=== PATIENT | female | born 1955 | race Caucasian/White ===

== ENCOUNTER 2016-10-11 08:48 | Outpatient (CLI) | payer OTHER ==
[~2016-10-11] VITALS: Ht 154.9 cm; Wt 88.0 kg
[~2016-10-11 08:48] MED LIST: ALLE25CA OR; BLAC20TA PO; BLACK COHOSH; CALC500T49; CALCCHW12; FERR324T5; FISH100035 PO; HAIRTAB5 PO; IRON28TA; MULTIVIT; OMEP40CA PO; PROT20TA11; REMICADE IV; VITA2000 PO; [UNRECOGNIZED DRUG - OTHER]; diphenhydrAMINE 25 MG CAP PO SCH
[2016-10-11] MEDS ORDERED: inFLIXimab INJECTION 400 MG in NS 210 ML IV ONE (09:00)
[2016-10-11] MEDS ORDERED: NS 1,000 ML IV SCH (09:00)
== END 2016-10-11 11:50 | disposition home or self-care (01) ==
LOC: M INFU 08:48
PROVIDERS: ATTEND Internal Medicine Gastroenterology
DX: K50.019 Crohn's disease of small intestine with unspecified complications (principal); Z91.040 Latex allergy status; Z79.899 Other long term (current) drug therapy; M19.90 Unspecified osteoarthritis, unspecified site
CPT/HCPCS: 96413; 96415; J1745

== ENCOUNTER 2016-12-06 09:43 | Outpatient (CLI) | payer OTHER ==
[~2016-12-06] VITALS: Ht 154.9 cm; Wt 65.0 kg
[2016-12-06] MEDS ORDERED: inFLIXimab INJECTION 400 MG in NS 210 ML IV ONE (11:00)
[2016-12-06] MEDS ORDERED: NS 1,000 ML IV SCH (11:00)
== END 2016-12-06 12:45 | disposition home or self-care (01) ==
LOC: M INFU 09:43
PROVIDERS: ATTEND Internal Medicine Gastroenterology
DX: K50.00 Crohn's disease of small intestine without complications (principal); Z91.040 Latex allergy status; Z88.0 Allergy status to penicillin; Z79.899 Other long term (current) drug therapy
CPT/HCPCS: 96413; 96415; J1745

== ENCOUNTER 2017-01-31 11:10 | Outpatient (CLI) | payer OTHER ==
[~2017-01-31] VITALS: Ht 154.9 cm; Wt 66.0 kg
[2017-01-31] MEDS ORDERED: NS 1,000 ML IV SCH (11:30)
[2017-01-31] MEDS ORDERED: inFLIXimab INJECTION 400 MG in NS 210 ML IV ONE (12:00)
== END 2017-01-31 14:20 | disposition home or self-care (01) ==
LOC: M INFU 11:10
PROVIDERS: ATTEND Internal Medicine Gastroenterology
DX: K50.00 Crohn's disease of small intestine without complications (principal); Z88.0 Allergy status to penicillin; Z91.040 Latex allergy status
CPT/HCPCS: 96413; 96415; J1745

== ENCOUNTER 2017-03-28 08:19 | Outpatient (CLI) | payer OTHER ==
[~2017-03-28] VITALS: Ht 154.9 cm; Wt 88.0 kg
[2017-03-28] MEDS ORDERED: inFLIXimab INJECTION 400 MG in NS 210 ML IV ONE (09:00)
[2017-03-28] MEDS ORDERED: NS 1,000 ML IV SCH (09:00)
== END 2017-03-28 11:40 | disposition home or self-care (01) ==
LOC: M INFU 08:19
PROVIDERS: ATTEND Internal Medicine Gastroenterology
DX: K50.00 Crohn's disease of small intestine without complications (principal)

== ENCOUNTER 2017-05-23 07:50 | Outpatient (CLI) | payer OTHER ==
[~2017-05-23] VITALS: Ht 154.9 cm; Wt 66.0 kg
[~2017-05-23 07:50] MED LIST changes: -FISH100035 PO; +FISH7.5C PO
[2017-05-23] MEDS ORDERED: NS 1,000 ML IV SCH (08:00)
[2017-05-23] MEDS ORDERED: inFLIXimab INJECTION 400 MG in NS 210 ML IV ONE (08:00)
== END 2017-05-23 10:55 | disposition home or self-care (01) ==
LOC: M INFU 07:50
PROVIDERS: ATTEND Internal Medicine Gastroenterology
DX: K50.00 Crohn's disease of small intestine without complications (principal)
CPT/HCPCS: 96413; 96415; J1745

== ENCOUNTER → 2017-06-23 | Outpatient (CLI) | payer OTHER ==
[~2017-06-23] MED LIST changes: -diphenhydrAMINE 25 MG CAP PO SCH
== END ==
LOC: M LAB 16:10
PROVIDERS: ATTEND Internal Medicine Gastroenterology
DX: K50.00 Crohn's disease of small intestine without complications (principal)

== ENCOUNTER → 2017-07-07 | Outpatient (CLI) | payer OTHER ==
--- NOTE | 2017-07-07 16:29 | REPMRS ---
Patient History The patient states she had a clinical breast exam in 07/2017. Patient is postmenopausal. No known family history of cancer. Digital Woman Screen Mammo: July 07, 2017 - Exam #: [id number] Bilateral CC and MLO view(s) were taken. Technologist: Zahira Alexandar, Technologist Prior study comparison: January 21, 2010, bilateral bilat screen digital mammo performed at [facility]. FINDINGS: There are scattered fibroglandular densities. The patient states that there are no palpable abnormalities or other breast complaints. There has been no change in the appearance of the mammogram from the prior studies. There is moderately dense fibroglandular tissue which is fairly symmetric. There is no interval development of dominant mass, areas of architectural distortion, or clustered microcalcification typical of malignancy. No significant changes when compared with prior studies. ASSESSMENT: BI-RADS/ACR category 1 mammogram. Negative. Recommendation Routine screening mammogram in 1 year (for women over age 40). This mammogram was interpreted with the aid of an FDA-approved computer-aided dectection system. A. Negative x-ray reports should not delay biopsy if a dominant or clinically suspicious mass is present. B. Not all cancers are identified by mammography. C. Adenosis and dense breast may obscure an underlying neoplasm. Electronically Signed By: Travon Orourke M.D. 07/07/17 [id number]
== END ==
LOC: M WHC 15:14
PROVIDERS: ATTEND Nurse Practitioner Women's Health
DX: Z12.31 Encounter for screening mammogram for malignant neoplasm of breast (principal)

== ENCOUNTER 2017-07-18 07:49 | Outpatient (CLI) | payer OTHER ==
[~2017-07-18] VITALS: Ht 154.9 cm; Wt 66.0 kg
[2017-07-18] MEDS ORDERED: INFLIXIMAB BIOSIMILAR 400 MG in NS 210 ML IV ONE (08:00)
[2017-07-18] MEDS ORDERED: diphenhydrAMINE 25 MG CAP PO ONE (08:00)
[2017-07-18] MEDS ORDERED: ACETAMINOPHEN TAB 650MG DOSE (2X325MG) PO ONE (08:00)
[2017-07-18] MEDS ORDERED: NS 1,000 ML IV SCH (08:00)
== END 2017-07-18 10:45 | disposition home or self-care (01) ==
LOC: M INFU 07:49
PROVIDERS: ATTEND Internal Medicine Gastroenterology
DX: K50.90 Crohn's disease, unspecified, without complications (principal); Z91.040 Latex allergy status; Z88.8 Allergy status to other drugs, medicaments and biological substances; Z91.041 Radiographic dye allergy status; Z88.0 Allergy status to penicillin; Z79.899 Other long term (current) drug therapy
CPT/HCPCS: 96413; 96415; Q5102

== ENCOUNTER 2017-07-20 06:38 | Day surgery (SDC) | payer OTHER ==
[~2017-07-20] VITALS: Ht 152.4 cm; Wt 63.0 kg
[2017-07-20] MEDS ORDERED: PROPOFOL 200 MG/20 ML VIAL As Ordered ONE (06:56)
[2017-07-20] MEDS ORDERED: LIDOCAINE 2% INJ 100 MG/5 ML SDV (FOR ANES.) As Ordered ONE (06:56)
[2017-07-20] MEDS ORDERED: NS 1,000 ML IV ONE (07:30)
--- NOTE | 2017-07-20 08:04 | ROOR ---
Patient Name: Nilesh Oleary Procedure Date: 07/20/2017 7:40 AM Date of : 1955 Age: 62 Room: [facility] Gender: Female Note Status: Finalized Procedure: Total Colonoscopy to Anastomosis + Biopsies Indications: Lower abdominal pain, Follow-up of Crohn's disease of the small bowel and colon, Disease activity assessment of Crohn's disease of the small bowel and colon Providers: James Yanes MD Referring MD: SCOTT BUENROSTRO MD Requesting Provider: Medicines: Monitored Anesthesia Care Complications: No immediate complications. Procedure: Pre-Anesthesia Assessment: - The heart rate, respiratory rate, oxygen saturations, blood pressure, adequacy of pulmonary ventilation, and response to care were monitored throughout the procedure. The Colonoscope was introduced through the anus and advanced to the ileocolonic anastomosis. The colonoscopy was performed without difficulty. The patient tolerated the procedure well. The quality of the bowel preparation was excellent. Findings: The perianal and digital rectal examinations were normal. Non-bleeding internal hemorrhoids were found during retroflexion. The hemorrhoids were small and Grade I (internal hemorrhoids that do not prolapse). There was evidence of a prior end-to-end ileo-colonic anastomosis at the hepatic flexure. This was patent and was characterized by inflammation and ulceration. The anastomosis could not be traversed. The exam was otherwise without abnormality on direct and retroflexion views. Impression: - Non-bleeding internal hemorrhoids. - Patent end-to-end ileo-colonic anastomosis, characterized by inflammation and ulceration. Biopsied. - The examination was otherwise normal on direct and retroflexion views. - No specimens collected. Recommendation: - Patient has a contact number available for emergencies. The signs and symptoms of potential delayed complications were discussed with the patient. Return to normal activities tomorrow. Written discharge instructions were provided to the patient. - Resume previous diet. - Discharge patient to home. - Continue present medications. - Await pathology results. - Telephone GI clinic for pathology results in 1 week. - Return to referring physician. - The findings and recommendations were discussed with the patient's family. James Yanes MD James Yanes MD 07/20/2017 8:04:02 AM This report has been signed electronically. Number of Addenda: 0 Note Initiated On: 07/20/2017 7:40 AM Estimated Blood Loss: Estimated blood loss: none.
[2017-07-20 08:25] VITALS: BP 117/77
== END 2017-07-20 08:29 | disposition home or self-care (01) ==
LOC: M OPP 06:38 → EDSTATUS 07:30 → M OPP 08:29
PROVIDERS: ATTEND Internal Medicine Gastroenterology
DX: K50.80 Crohn's disease of both small and large intestine without complications (principal); R10.30 Lower abdominal pain, unspecified; K64.0 First degree hemorrhoids; Z98.0 Intestinal bypass and anastomosis status; K63.89 Other specified diseases of intestine; R19.7 Diarrhea, unspecified; R53.83 Other fatigue; D64.9 Anemia, unspecified; R63.0 Anorexia; J84.89 Other specified interstitial pulmonary diseases; M19.90 Unspecified osteoarthritis, unspecified site; R06.02 Shortness of breath; Z87.442 Personal history of urinary calculi; Z88.8 Allergy status to other drugs, medicaments and biological substances; Z88.0 Allergy status to penicillin; Z91.041 Radiographic dye allergy status; Z91.040 Latex allergy status; Z79.899 Other long term (current) drug therapy

== ENCOUNTER 2017-08-24 15:24 | Inpatient (IN) | payer OTHER ==
[~2017-08-24] VITALS: Ht 154.9 cm; Wt 63.3 kg
[~2017-08-24 15:24] MED LIST changes: -ALLE25CA OR; +ALLE25CA PO; -CALC500T49; +CALC500T49 PO
[2017-08-24] MEDS ORDERED: ONDANSETRON 4MG/2ML VIAL (J2405) IV ONE (17:45)
[2017-08-24] MEDS ORDERED: NS 1,000 ML IV ONE ×2 (17:45→21:30)
[2017-08-24] MEDS ORDERED: READI-CAT 2 PO ONE ×2 (18:00→19:00)
--- NOTE | 2017-08-24 18:18 | REP ---
Clinical: Lower chest and abdominal pain. Technique: PA and lateral. Comparison: 05/22/2014. Findings: Mediastinum and cardiac silhouette are stable. Lung ayala demonstrate mild chronic interstitial changes. Trace left basilar atelectasis cannot be excluded. Ovoid mass density in the right lower lung zone is similar to prior examination and should be correlated with history. Impression: 1. Trace left basilar atelectasis. 2. Ovoid mass in the right lower lung zone remains relatively stable compared to 2013. Historical correlation recommended. Signed by Neto Lin MD 08/24/2017 06:09 P
[2017-08-24] MEDS: MORPHINE 2 MG/ML 1ML SYRINGE IV PRN ×2 (18:29→21:27)
[2017-08-24 18:48] LABS: BASO % 0.3 % (0.0-1.0); EOS % 0.1 % (0.0-3.0); IMMATURE GRANULOCYTE % 0.3 % (0-0); LYMPH # 1.3 10^3/uL (1.5-4.5); LYMPH % 11.4 % (24.0-44.0); MEAN CORPUSCULAR HEMOGLOBIN 27.3 pg (27.0-33.0); MEAN CORPUSCULAR HGB CONC 33.1 g/dl (32.0-36.5); MEAN CORPUSCULAR VOLUME 82.5 fl (80.0-96.0); MONO # 0.3 10^3/uL (0.0-0.8); MONO % 2.9 % (0.0-5.0); PLATELET COUNT, AUTOMATED 263 10^3/uL (150-450); RED CELL DISTRIBUTION WIDTH 14.5 % (11.5-14.5); WHITE BLOOD COUNT 11.7 10^3/uL (4.0-10.0)
[2017-08-24 19:02] LABS: ALBUMIN 3.7 GM/DL (3.2-5.2); ALBUMIN/GLOBULIN RATIO 0.97 (1.00-1.93); ALKALINE PHOSPHATASE 91 U/L (45-117); ALT/SGPT 23 U/L (12-78); ANION GAP 9 MEQ/L (8-16); AST/SGOT 18 U/L (7-37); BILIRUBIN,DIRECT 0.3 MG/DL (0.0-0.2); BILIRUBIN,TOTAL 1.4 MG/DL (0.2-1.0); BLOOD UREA NITROGEN 14 MG/DL (7-18); CALCIUM LEVEL 9.5 MG/DL (8.8-10.2); CARBON DIOXIDE LEVEL 25 MEQ/L (21-32); CHLORIDE LEVEL 106 MEQ/L (98-107); CREATININE FOR GFR 0.59 MG/DL (0.55-1.02); GLOMERULAR FILTRATION RATE > 60.0 (>45); GLUCOSE, FASTING 118 MG/DL (80-110); POTASSIUM SERUM 3.6 MEQ/L (3.5-5.1); SODIUM LEVEL 140 MEQ/L (136-145); TOTAL PROTEIN 7.5 GM/DL (6.4-8.2)
--- NOTE | 2017-08-24 20:57 | REP ---
Clinical: Acute abdominal pain and constipation. Comparison: 06/18/2017. Technique: Axial images from the lung bases to the pubic symphysis using oral contrast material as per protocol with coronal and sagittal re-formations. Comparison: 06/18/2017. Findings: Partial small bowel obstruction is suggested with small-bowel fecal sign extending to the right lower quadrant where transition to collapsed bowel is identified possibly related to adhesions. The distal small bowel and 11 appears relatively normal caliber. There is no evidence for pelvic fluid or ascites, drainable abscess, or free air to suggest perforation. Evidence for prior anastomoses in the right lower quadrant without obstruction. Liver, spleen, pancreas, gallbladder, bilateral adrenal glands and kidneys are stable. Bilateral parapelvic cysts are again identified along with 7 cm exophytic left renal cyst. Pelvis demonstrates normal bladder and evidence for prior hysterectomy. No adenopathy. Abdominal aorta without aneurysm. Musculoskeletal structures demonstrate age-related changes without focal osseous abnormality. Lung bases demonstrate stable right middle lobe mass. Impression: 1. Partial small bowel obstruction with transition suspected in the right lower quadrant. Findings are similar to prior examination. No evidence for perforation, free fluid or drainable collection/abscess. 2. Stable right middle lobe lung mass. 3. Stable bilateral parapelvic and 7 cm left renal cysts. Signed by Neto Lin MD 08/24/2017 08:48 P
[2017-08-24] MEDS ORDERED: CIPROFLOXACIN 400 MG in APPROPRIATE DILUENT 1 EA IV ONE (22:00)
[2017-08-24] MEDS ORDERED: metroNIDAZOLE 500 MG in APPROPRIATE DILUENT 1 EA IV ONE (22:00)
[2017-08-24] MEDS ORDERED: VITMTA PO (23:18)
[2017-08-24] MEDS ORDERED: INFL10VL IV (23:27)
[2017-08-24] MEDS ORDERED: OMEP20CA3 PO (23:30)
[2017-08-25] MEDS: NS 1,000 ML IV SCH ×3 (00:36→20:24)
[2017-08-25 01:00] VITALS: BP 174/86
[2017-08-25] MEDS ORDERED: MORPHINE 2 MG/ML 1ML SYRINGE IV PRN (01:00)
[2017-08-25 06:00] VITALS: BP 140/82
[2017-08-25] MEDS ORDERED: metroNIDAZOLE 500 MG in APPROPRIATE DILUENT 1 EA IV SCH (06:00)
--- NOTE | 2017-08-25 07:07 | HPE ---
DATE OF ADMISSION: 08/24/2017 The patient, Nilesh Ogden, is a 62-year-old female. Patient comes in with 2 days of abdominal pain. Patient noticed that she has had increasing belly tightness and abdominal pain over the past couple of days. She says that initially she did not have nausea and vomiting, however, when she came to the emergency department (ED) she had developed nausea and vomiting. Patient has a history of Crohn's disease on autoimmune treatment and having bowel resection. So patient had suspicion that it was related to her Crohn's. Patient, while here, began antibiotic treatments in the ED and abdominal CT showed small bowel obstruction (SBO). Gastroenterology recommended admission for evaluation by GI tomorrow. Also recommended the continuation of intravenous (IV) antibiotics given the possibility of a Crohn's disease factor in the development of the SBO versus possible adhesions. REVIEW OF SYSTEMS: Patient without any other complaints other than what was mentioned in the history of present illness (HPI). No urinary complaints. Patient's home medications include: - black cohosh -calcium - Benadryl - fish oil - infliximab - multivitamins - omeprazole Patient with ALLERGIES to ASPIRIN, CONTRAST MEDIA, LATEX and PREDNISONE. Patient's other past medical history includes gastroesophageal reflux disease (GERD), colonic resection as noted above, hysterectomy, adhesions. Patient denies any related family history. Patient is a nonsmoker, does not use drugs, does not drink alcohol. PHYSICAL EXAMINATION: Patient was resting comfortably. When I came though, she was somewhat annoyed by the presence of the tube. Vitally stable. Temperature 96.7, pulse 77, respiratory rate 18, blood pressure (BP) 141/90, pulse oximetry is 97% on room air. Patient is alert and oriented times three with normal affect, normal mood. Cranial nerve (CN) II-XII grossly intact. Patient with good strength in arms and legs. No significantly impaired range of movement. S1, S2, regular rate and rhythm (RRR). No murmur, rub or gallop (MRG). Good inspiratory and expiratory effort. No wheezes, rhonchi or rales. Abdomen is obese, somewhat tense. Skin is warm and dry. No apparent lymphadenopathy. Patient also with nasogastric (NG) tube obviously placed. Neck is supple. No rigidity. Extraocular muscles intact (EOMI). Pupils equal, round, and reactive to light and accommodation (PERRLA). Patient with grossly normal hearing, able to see in all four quadrants. LABORATORY EXAMINATIONS: WBC mildly elevated at 11.7. Otherwise, hemoglobin and hematocrit within normal limits. Chemistry grossly normal. Urinalysis is equivocal. Positive leukocyte esterases with 11 WBCs and 4 urine RBCs, also positive ketones, however negative nitrite. Patient is asymptomatic. For chest x-ray the impression is trace left basilar atelectasis, ovoid mass in the right lower lung zone remains relatively stable compared to 2014. Historical correlation is recommended. CT abdomen shows partial small bowel obstruction transition suspected in the right lower quadrant. Findings are similar to prior examination. No evidence for perforation, free fluid or drainable collection abscess. Right middle lobe lung mass. Stable bilateral parapelvic 7 mm left renal cyst. ASSESSMENT AND PLAN: Patient is a pleasant, 62-year-old female who comes in with chief complaint of abdominal pain, nausea and vomiting, found to have small bowel obstruction on CT. Patient's GI specialist recommends admission, NG tube, IV antibiotics, evaluation in the morning. We will follow recommendations. Patient to be nothing by mouth except medications. Deep venous thrombosis (DVT) prophylaxis, intermittent pneumatic compression (IPC). Patient ALLERGIC to ASPIRIN. Patient is ambulatory. Possible intervention, therefore, anticoagulation not to be done right now. Continue proton pump inhibitor (PPI) for patient's gastroesophageal reflux disease and patient's Crohn's disease. Patient gets outpatient immune immunomodulatory therapy. Pain control with morphine. Continue IV antibiotics as possible infectious source. Abnormal urinalysis. Patient nonsymptomatic. Patient already on Cipro, Flagyl, which would give moderate coverage to any urinary tract infection (UTI) anyway. Would not start antibiotics solely on the basis of the urinalysis. I first saw patient 08/24/2017. Given the patient's need for a NG tube, IV antibiotics, I doubt the patient will be here for less than two midnights.
[2017-08-25 07:29] LABS: BASO % 0.1 % (0.0-1.0); EOS % 0.4 % (0.0-3.0); IMMATURE GRANULOCYTE % 0.2 % (0-0); LYMPH # 1.9 10^3/uL (1.5-4.5); LYMPH % 20.7 % (24.0-44.0); MEAN CORPUSCULAR HEMOGLOBIN 27.4 pg (27.0-33.0); MEAN CORPUSCULAR HGB CONC 32.7 g/dl (32.0-36.5); MEAN CORPUSCULAR VOLUME 83.8 fl (80.0-96.0); MONO # 0.6 10^3/uL (0.0-0.8); MONO % 6.4 % (0.0-5.0); NEUTROPHILS # 6.6 10^3/uL (1.8-7.7); NEUTROPHILS % 72.2 % (36.0-66.0); PLATELET COUNT, AUTOMATED 243 10^3/uL (150-450); RED CELL DISTRIBUTION WIDTH 14.7 % (11.5-14.5); WHITE BLOOD COUNT 9.2 10^3/uL (4.0-10.0)
--- NOTE | 2017-08-25 08:53 | IPNPDOC ---
Subjective Date Seen The patient was seen on 08/25/17. Subjective Chief Complaint/HPI The patient is a 62-year-old female admitted with a reason for visit of Small Bowel Obstruction. Events since last encounter still has some abdominal pain but a little better than yesterday . Has not passed any gas yet and no bowel movements. Has NG tube to suction , Says the tube is bothering her. No chest pain or sob , has some nasal congestion and cold going on for about 2 days . no fever or chills, no nausea or vomiting. Says her belly is much flatter today compared to yesterday. Objective Physical Examination General Exam: Positive: Alert, Cooperative, No Acute Distress Eye Exam: Positive: PERRLA, Conjunctiva & lids normal, EOMI, Negative: Sclera icteric ENT Exam: Positive: Atraumatic, Mucous membr. moist/pink, Pharynx Normal Neck Exam: Positive: Supple, Negative: JVD, thyromegaly Chest Exam: Positive: Clear to auscultation, Normal air movement Heart Exam: Positive: Rate Normal, Regular Rhythm, Normal S1, Normal S2, Negative: Murmurs, Rubs Abdomen Exam: Positive: BS Hypoactive, Soft, Tenderness Extremity Exam: Positive: Normal pulses, Negative: Clubbing, Cyanosis, Edema Assessment /Plan Problems (1) SBO (small bowel obstruction) Status: Acute Problem Text: will continue NPO , NG tube to suction, IVF will ask surgery for evaluation. on empiric antibiotics (2) Crohn's disease Status: Chronic Problem Text: On Remicade. (3) GERD (gastroesophageal reflux disease) Status: Chronic (4) Lung mass Status: Chronic Problem Text: Right middle lobe mass stable since 2014. (5) Renal cyst Status: Chronic Plan/VTE VTE Prophylaxis Ordered?: Yes VS, I&O, 24H, Fishbone Vital Signs/I&O Vital Signs Date Time Temp Pulse Resp B/P (MAP) Pulse Ox O2 Delivery O2 Flow Rate FiO2 08/25/17 06:00 98.5 95 18 140/82 (101) 97 Room Air Laboratory Data 24H LABS Laboratory Tests 2 08/24/17 18:08: Immature Granulocyte % (Auto) 0.3H, White Blood Count 11.7H, Red Blood Count 5.27, Hemoglobin 14.4, Hematocrit 43.5, Mean Corpuscular Volume 82.5, Mean Corpuscular Hemoglobin 27.3, Mean Corpuscular Hemoglobin Concent 33.1, Red Cell Distribution Width 14.5, Platelet Count 263, Neutrophils (%) (Auto) 85.0H, Lymphocytes (%) (Auto) 11.4L, Monocytes (%) (Auto) 2.9, Eosinophils (%) (Auto) 0.1, Basophils (%) (Auto) 0.3, Neutrophils # (Auto) 10.0H, Lymphocytes # (Auto) 1.3L, Monocytes # (Auto) 0.3, Eosinophils # (Auto) 0.0, Basophils # (Auto) 0.0, Immature Granulocyte # (Auto) 0.0, Nucleated Red Blood Cells % (auto) 0.0, Anion Gap 9, Glomerular Filtration Rate > 60.0, Lactic Acid Level 1.5, Calcium Level 9.5, Aspartate Amino Transf (AST/SGOT) 18, Alanine Aminotransferase (ALT/ SGPT) 23, Alkaline Phosphatase 91, Total Bilirubin 1.4H, Direct Bilirubin 0.3H, Total Protein 7.5, Albumin 3.7, Albumin/Globulin Ratio 0.97L, Lipase 89 08/24/17 19:29: Urine Appearance HAZY, Urine Color YELLOW, Urine pH 5.0, Urine Specific [place] 1.019, Urine Protein NEGATIVE, Urine Glucose (UA) NEGATIVE, Urine Ketones 1+H, Urine Urobilinogen 0.2, Urine Bilirubin NEGATIVE, Urine Leukocyte Esterase 2+H, Urine Blood NEGATIVE, Urine Nitrite NEGATIVE, Urine WBC (Auto) 11H, Urine RBC ( Auto) 4H, Urine Hyaline Casts (Auto) 0, Urine Bacteria (Auto) NEGATIVE, Urine Squamous Epithelial Cells 0, Urine Mucus (Auto) SMALL, Urine Sperm (Auto) 08/25/17 07:00: Immature Granulocyte % (Auto) 0.2H, White Blood Count 9.2, Red Blood Count 4.75 , Hemoglobin 13.0, Hematocrit 39.8, Mean Corpuscular Volume 83.8, Mean Corpuscular Hemoglobin 27.4, Mean Corpuscular Hemoglobin Concent 32.7, Red Cell Distribution Width 14.7H, Platelet Count 243, Neutrophils (%) (Auto) 72.2H, Lymphocytes (%) (Auto) 20.7L, Monocytes (%) (Auto) 6.4H, Eosinophils (%) (Auto) 0.4, Basophils (%) (Auto) 0.1, Neutrophils # (Auto) 6.6, Lymphocytes # (Auto) 1.9, Monocytes # (Auto) 0.6, Eosinophils # (Auto) 0.0, Basophils # (Auto) 0.0, Immature Granulocyte # (Auto) 0.0, Nucleated Red Blood Cells % (auto) 0.0 CBC/BMP Laboratory Tests 08/24/17 18:08 Red Blood Count 5.27, Mean Corpuscular Volume 82.5, Mean Corpuscular Hemoglobin 27.3, Mean Corpuscular Hemoglobin Concent 33.1, Red Cell Distribution Width 14.5 , Neutrophils (%) (Auto) 85.0 H, Lymphocytes (%) (Auto) 11.4 L, Monocytes (%) ( Auto) 2.9, Eosinophils (%) (Auto) 0.1, Basophils (%) (Auto) 0.3, Neutrophils # ( Auto) 10.0 H, Lymphocytes # (Auto) 1.3 L, Monocytes # (Auto) 0.3, Eosinophils # (Auto) 0.0, Basophils # (Auto) 0.0 08/25/17 07:00 Red Blood Count 4.75, Mean Corpuscular Volume 83.8, Mean Corpuscular Hemoglobin 27.4, Mean Corpuscular Hemoglobin Concent 32.7, Red Cell Distribution Width 14.7 H, Neutrophils (%) (Auto) 72.2 H, Lymphocytes (%) (Auto) 20.7 L, Monocytes (%) (Auto) 6.4 H, Eosinophils (%) (Auto) 0.4, Basophils (%) (Auto) 0.1, Neutrophils # (Auto) 6.6, Lymphocytes # (Auto) 1.9, Monocytes # (Auto) 0.6, Eosinophils # (Auto) 0.0, Basophils # (Auto) 0.0 KATHERINE DE MD Aug 25, 2017 08:53
[2017-08-25] MEDS ORDERED: PANTOPRAZOLE 40MG TAB (PROTONIX) PO SCH (09:00)
[2017-08-25] MEDS ORDERED: MULTIVITAMINS/MINERALS THERAP 1 TAB PO SCH (09:00)
[2017-08-25] MEDS: CIPROFLOXACIN 400 MG in APPROPRIATE DILUENT 1 EA IV SCH ×2 (09:16→20:23)
--- NOTE | 2017-08-25 09:56 | CR.PDOC ---
General Surgery Consultation Date of Consultation 08/25/17 History and Physical CONSULT REPORT FOR: Caitlin Medina MD REASON FOR CONSULTATION: Crohn's Disease Exacerbation, partial small bowel obstruction HISTORY OF PRESENT ILLNESS: Patient admitted overnight for a 2 day history of crampy abdominal pain centered over the right lower quadrant area associated with nausea. She has a long standing history of Crohn's Disease and is followed up by Dr. Yanes on Remicaide therapy. Last Colonoscopy was this July, showing still active Crohn's disease at the ileo-colonic anastomosis. PAST MEDICAL HISTORY: 1. Crohn's disease 2. PAST SURGICAL HISTORY: INCLUDES: TOTAL HYSTERECTOMY/BSO TONSILLECTOMY APPENDECTOMY RIGHT CARPAL TUNNEL RELEASE HERNIA REPAIR SMALL INTESTINE SURGERY FOR 5 BLOCKAGES AND POSTOP INFECTION AT INCISION, OPEN AND DRAINED D&C COLONOSCOPY .FAMILY HISTORY FATHER: 74 YRS, COMPLICATIONS OF DM MOTHER: 72 YRS, COMPLICATIONS OF ALZHEIMERS SIBLINGS: ALIVE, HALF SISTER, NO KNOWN MEDICAL PROBLEMS DAUGHTER(S): ALIVE 42,38 YRS, OLDEST-HAS NO CONTACT WITH; YOUNGEST-DEPRESSION IN PAST 1 SISTER(S) - HEALTHY. 2DAUGHTER(S) . DENIES BREAST, COLON OR OVARIAN CANCERS. TWO GRANDSONS, DOES NOT SEE (OLDEST DAUGHTER). SOCIAL HISTORY GENERAL: TOBACCO USE ARE YOU A:NONSMOKER RECREATIONAL DRUG USE DENIES. ALCOHOL SCREENING POINTS0 INTERPRETATIONNEGATIVE CAFFEINE NONE. PREVIOUS ANESTHESIA REACTIONS: ALLERGIES: Please see below. FAMILY HISTORY: . HOME MEDICATIONS: Please see below. REVIEW OF SYSTEMS: GENERAL: [Denies chills, reports weight gain, reports feeling febrile yesterday] . HEENT: [Denies blurred vision and double vision. Denies ear symptoms. Denies hoarseness]. NECK: Denies any neck pain]. CARDIOVASCULAR: [Denies chest pain and palpitations]. MUSCULOSKELETAL: [Denies arthralgias, back pain and thrombophlebitis]. SKIN: [Denies rash]. NEUROLOGIC: [Denies headache, stroke and transient ischemic attack]. PSYCHIATRIC: [Denies anxiety and depression]. ENDOCRINE: [Denies thyroid disease]. HEMATOLOGY/ONCOLOGY: [Denies bleeding or clotting disorder]. HEART: [Denies any chest pains, palpitations, paroxysmal dyspnea, orthopnea]. PULMONARY: [Denies chronic cough, dyspnea and wheezing]. GASTROINTESTINAL: [Denies rectal bleeding, family history of colon cancer, constipation, diarrhea, dysphagia, heartburn and jaundice]. GENITOURINARY: [Denies dysuria, frequency, hematuria and nocturia]. ENDOCRINE: [Denies polydipsia, polyphagia, polyuria, heat or cold intolerance]. INFECTIOUS: [Denies any recent upper respiratory tract infection, UTI, need for use of antibiotics]. NUTRITION: [Reports good appetite]. PHYSICAL EXAMINATION: VITALS SIGNS: Please see below. GENERAL APPEARANCE:[Patient seen, laying in bed, awake, alert, and oriented. Comfortable, in no acute distress]. SKIN: [Warm and moist]. HEENT: [Normocephalic, atraumatic. [place] palpebral conjunctiva, anicteric sclerae. Lips and mucosa appear moist]. NECK: [Supple, no thyromegaly. No obvious jugular venous distention]. LUNGS: [Clear to auscultation bilaterally. No wheezing appreciated]. HEART: [No chest wall abnormalities. Regular rate and rhythm with no murmurs appreciated]. ABDOMEN: Abdomen is , soft, . [No hepatosplenomegaly. No umbilical or groin herniations, nondistended. No noticeable rebound or guarding. No grimacing with palpation. No rebound tenderness. No masses appreciated]. EXTREMITIES: [Extremities have no deformities. No edema identified] ANCILLARIES: . LABORATORY DATA: Please see below. IMAGING STUDIES: CT scan of abdomen and pelvis 1. Partial small bowel obstruction with transition suspected in the right lower quadrant. Findings are similar to prior examination. No evidence for perforation, free fluid or drainable collection/abscess. 2. Stable right middle lobe lung mass. 3. Stable bilateral parapelvic and 7 cm left renal cysts. IMPRESSION AND PLAN: Crohn's Disease partial small bowel obstruction probably at the ileocolonic anastomosis - There is evidence of Crohn's disease activity here on the last colonoscopy on 2016 but remains patent at that time. Continue with conservative management. Check CRP levels Once clinically improved, may gradually resume diet. Vital Signs Vital Signs Date Time Temp Pulse Resp B/P (MAP) Pulse Ox O2 Delivery O2 Flow Rate FiO2 08/25/17 06:00 98.5 95 18 140/82 (101) 97 Room Air Laboratory Data Labs 24H Laboratory Tests 2 08/24/17 18:08: Immature Granulocyte % (Auto) 0.3H, White Blood Count 11.7H, Red Blood Count 5.27, Hemoglobin 14.4, Hematocrit 43.5, Mean Corpuscular Volume 82.5, Mean Corpuscular Hemoglobin 27.3, Mean Corpuscular Hemoglobin Concent 33.1, Red Cell Distribution Width 14.5, Platelet Count 263, Neutrophils (%) (Auto) 85.0H, Lymphocytes (%) (Auto) 11.4L, Monocytes (%) (Auto) 2.9, Eosinophils (%) (Auto) 0.1, Basophils (%) (Auto) 0.3, Neutrophils # (Auto) 10.0H, Lymphocytes # (Auto) 1.3L, Monocytes # (Auto) 0.3, Eosinophils # (Auto) 0.0, Basophils # (Auto) 0.0, Immature Granulocyte # (Auto) 0.0, Nucleated Red Blood Cells % (auto) 0.0, Anion Gap 9, Glomerular Filtration Rate > 60.0, Lactic Acid Level 1.5, Calcium Level 9.5, Aspartate Amino Transf (AST/SGOT) 18, Alanine Aminotransferase (ALT/ SGPT) 23, Alkaline Phosphatase 91, Total Bilirubin 1.4H, Direct Bilirubin 0.3H, Total Protein 7.5, Albumin 3.7, Albumin/Globulin Ratio 0.97L, Lipase 89 08/24/17 19:29: Urine Appearance HAZY, Urine Color YELLOW, Urine pH 5.0, Urine Specific [place] 1.019, Urine Protein NEGATIVE, Urine Glucose (UA) NEGATIVE, Urine Ketones 1+H, Urine Urobilinogen 0.2, Urine Bilirubin NEGATIVE, Urine Leukocyte Esterase 2+H, Urine Blood NEGATIVE, Urine Nitrite NEGATIVE, Urine WBC (Auto) 11H, Urine RBC ( Auto) 4H, Urine Hyaline Casts (Auto) 0, Urine Bacteria (Auto) NEGATIVE, Urine Squamous Epithelial Cells 0, Urine Mucus (Auto) SMALL, Urine Sperm (Auto) 08/25/17 07:00: Immature Granulocyte % (Auto) 0.2H, White Blood Count 9.2, Red Blood Count 4.75 , Hemoglobin 13.0, Hematocrit 39.8, Mean Corpuscular Volume 83.8, Mean Corpuscular Hemoglobin 27.4, Mean Corpuscular Hemoglobin Concent 32.7, Red Cell Distribution Width 14.7H, Platelet Count 243, Neutrophils (%) (Auto) 72.2H, Lymphocytes (%) (Auto) 20.7L, Monocytes (%) (Auto) 6.4H, Eosinophils (%) (Auto) 0.4, Basophils (%) (Auto) 0.1, Neutrophils # (Auto) 6.6, Lymphocytes # (Auto) 1.9, Monocytes # (Auto) 0.6, Eosinophils # (Auto) 0.0, Basophils # (Auto) 0.0, Immature Granulocyte # (Auto) 0.0, Nucleated Red Blood Cells % (auto) 0.0 CBC/BMP Laboratory Tests 08/24/17 18:08 Red Blood Count 5.27, Mean Corpuscular Volume 82.5, Mean Corpuscular Hemoglobin 27.3, Mean Corpuscular Hemoglobin Concent 33.1, Red Cell Distribution Width 14.5 , Neutrophils (%) (Auto) 85.0 H, Lymphocytes (%) (Auto) 11.4 L, Monocytes (%) ( Auto) 2.9, Eosinophils (%) (Auto) 0.1, Basophils (%) (Auto) 0.3, Neutrophils # ( Auto) 10.0 H, Lymphocytes # (Auto) 1.3 L, Monocytes # (Auto) 0.3, Eosinophils # (Auto) 0.0, Basophils # (Auto) 0.0 08/25/17 07:00 Red Blood Count 4.75, Mean Corpuscular Volume 83.8, Mean Corpuscular Hemoglobin 27.4, Mean Corpuscular Hemoglobin Concent 32.7, Red Cell Distribution Width 14.7 H, Neutrophils (%) (Auto) 72.2 H, Lymphocytes (%) (Auto) 20.7 L, Monocytes (%) (Auto) 6.4 H, Eosinophils (%) (Auto) 0.4, Basophils (%) (Auto) 0.1, Neutrophils # (Auto) 6.6, Lymphocytes # (Auto) 1.9, Monocytes # (Auto) 0.6, Eosinophils # (Auto) 0.0, Basophils # (Auto) 0.0 Home Medications Scheduled (Black Cohosh) 20 Mg Tab, 20 MG PO DAILY, (Reported) (Fish Oil 1000 mg) 1 Cap Cap, 1,000 MG PO BID, (Reported) Calcium (Calcium) 500 Mg Tab, 500 MG PO DAILY, (Reported) Diphenhydramine Hcl (Benadryl) 25 Mg Cap, 25 MG PO PRN, (Reported) Infliximab Injection (Remicade) 100 Mg/10 Ml Vial, 400 MG IV [id number], (Reported) Multivitamins *[facility] STOCKED* (Thera M Plus *[facility] STOCKED*) 1 Tab Tab, 1 TAB PO DAILY, (Reported) Omeprazole (Omeprazole) 20 Mg Cap, 20 MG PO QAM, (Reported) BEFORE FOOD Allergies Coded Allergies: Latex (Verified Allergy, Intermediate, RASH, 08/24/17) Prednisone (Verified Allergy, Intermediate, RASH, 08/24/17) Aspirin (Verified Adverse Reaction, Intermediate, HIVES, 08/24/17) Contrast Media (Verified Adverse Reaction, Intermediate, UNKNOWN, 08/24/17 ) NINO CLINE MD Aug 25, 2017 09:56
[2017-08-25] MEDS ORDERED: ONDANSETRON 4MG/2ML VIAL (J2405) IV PRN (10:45)
[2017-08-25] MEDS: PANTOPRAZOLE 40MG INJ (PROTONIX) (C9113) IV SCH (12:46)
[2017-08-25 14:00] VITALS: BP 140/78
[2017-08-25] MEDS: metroNIDAZOLE 500 MG in APPROPRIATE DILUENT 1 EA IV SCH ×2 (14:13→22:00)
[2017-08-25 22:00] VITALS: BP 136/90
--- NOTE | 2017-08-26 01:40 | CR.PDOC ---
[facility] Consultation Consultation DATE OF CONSULTATION: Aug 25, 2017 at 15:24 Primary physician/ hospitalist: Dr. Caitlin Medina. Reason for consult: Crohns disease. HPI: 62 year old woman with Crohns ileocolitis ( s/p bowel resection in past with ileocolonic anastomosis) was following with Dr. Yanes who started patient on remicade, and last colonoscopy in July 2017 noted active crohns, presented to ER for complaints of abdominal pain and nausea. Patient had CT abdomen noted with partial small bowel obstruction and GI consulted for the same. Patient reports gastroenteritis like symptoms followed by abdominal pain which progressively got worse. Patient reports not being able to tolerate PO diet and not passing stools fo atleast 2 days prior to ER visit. Patient denies vomiting of food. Pertinent negative GI symptoms: Patient denies vomiting, diarrhea, loss of appetite or unintentional weight loss. No history of hematemesis, melena or hematochezia. Review of Systems: GI: as stated above CVS: No chest pain, No palpitations, No leg swelling. 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 Skin: No rash : No hematuria, No burning sensation of the urine ENT: No ear discharge/ pain, No dysphagia. Eyes: No photophobia. Home medications: reviewed. Antithrombotic agents None Medical h/o: As above. Surgical h/o: None on abdomen. Social h/o: Alcohol Denies , smoking Denies , IVDA/ drugs Denies . Family h/o of GI cancers - None Prior Endoscopies: --- Had prior EGD and Colonoscopy in [facility] by Dr. Yanes. Exam: Vitals: reviewed General: Alert and oriented x 3, not in distress HEENT: NO pallor, no icterus. Normal oropharynx, NO cervical lymph nodes. Chest: symmetric with bilateral clear air entry, CVS: S1, S2 heard, normal, no murmurs . Abdomen: non-distended, no surgical scars, soft, non-tender, no palpable masses , normal bowel sounds heard. Extremities: no pedal edema, pulses palpable. ASPHALT SCREED OPERATOR: no focal motor or sensory deficits. Moves all extremities Skin: no rash. Labs: reviewed. Imaging: reviewed Impression: - Moderate to severe crohns disease - Abnormal CT scan showing possible partial SBO but patient able to pass gas and no vomiting. DDx- Acute viral or bacterial gastroenteritis vs flare of crohns disease. Recommendations: - Patient educated about the test results, possible differential diagnoses and All questions answered. - NPO with NG tube with intermittent suction. - Stool work up if diarrhea. - Give empiric course of antibiotics ciprofloxacin and metronidazole for 5 days. - resume diet after 24 hours if tolerating and advance as tolerated. - In view of recent colonoscopy no indication for urgent endoscopic work up at this time. - Elective CT enterography as out patient after the resolution of the acute episode. - Upon discharge patient to follow up with Primary buffing wheel raker Dr. Yanes. Plan of care discussed with patient and primary team. Patient verbalized understanding and agreed with the plan. Allergies Coded Allergies: Latex (Verified Allergy, Intermediate, RASH, 08/24/17) Prednisone (Verified Allergy, Intermediate, RASH, 08/24/17) Aspirin (Verified Adverse Reaction, Intermediate, HIVES, 08/24/17) Contrast Media (Verified Adverse Reaction, Intermediate, UNKNOWN, 08/24/17 ) Home Medications Scheduled (Black Cohosh) 20 Mg Tab, 20 MG PO DAILY, (Reported) (Fish Oil 1000 mg) 1 Cap Cap, 1,000 MG PO BID, (Reported) Calcium (Calcium) 500 Mg Tab, 500 MG PO DAILY, (Reported) Diphenhydramine Hcl (Benadryl) 25 Mg Cap, 25 MG PO PRN, (Reported) Infliximab Injection (Remicade) 100 Mg/10 Ml Vial, 400 MG IV [id number], (Reported) Multivitamins *[facility] STOCKED* (Thera M Plus *[facility] STOCKED*) 1 Tab Tab, 1 TAB PO DAILY, (Reported) Omeprazole (Omeprazole) 20 Mg Cap, 20 MG PO QAM, (Reported) BEFORE FOOD ANTHONY FELTON MD Aug 26, 2017 01:40
[2017-08-26] MEDS: metroNIDAZOLE 500 MG in APPROPRIATE DILUENT 1 EA IV SCH (05:57)
[2017-08-26 06:00] VITALS: BP 130/84
[2017-08-26] MEDS: NS 1,000 ML IV SCH (06:26)
[2017-08-26 06:31] LABS: BASO % 0.3 % (0.0-1.0); EOS # 0.2 10^3/uL (0.0-0.50); EOS % 2.3 % (0.0-3.0); IMMATURE GRANULOCYTE % 0.3 % (0-0); LYMPH # 2.1 10^3/uL (1.5-4.5); LYMPH % 32.3 % (24.0-44.0); MEAN CORPUSCULAR HEMOGLOBIN 27.3 pg (27.0-33.0); MEAN CORPUSCULAR HGB CONC 32.5 g/dl (32.0-36.5); MONO # 0.5 10^3/uL (0.0-0.8); MONO % 7.3 % (0.0-5.0); NEUTROPHILS # 3.7 10^3/uL (1.8-7.7); NEUTROPHILS % 57.5 % (36.0-66.0); PLATELET COUNT, AUTOMATED 231 10^3/uL (150-450); RED CELL DISTRIBUTION WIDTH 14.6 % (11.5-14.5); WHITE BLOOD COUNT 6.4 10^3/uL (4.0-10.0)
[2017-08-26 07:11] LABS: ALBUMIN 2.8 GM/DL (3.2-5.2); ALBUMIN/GLOBULIN RATIO 0.97 (1.00-1.93); ALKALINE PHOSPHATASE 72 U/L (45-117); ALT/SGPT 13 U/L (12-78); ANION GAP 10 MEQ/L (8-16); AST/SGOT 15 U/L (7-37); BILIRUBIN,TOTAL 1.7 MG/DL (0.2-1.0); BLOOD UREA NITROGEN 8 MG/DL (7-18); CALCIUM LEVEL 8.1 MG/DL (8.8-10.2); CARBON DIOXIDE LEVEL 23 MEQ/L (21-32); CHLORIDE LEVEL 110 MEQ/L (98-107); CREATININE FOR GFR 0.46 MG/DL (0.55-1.02); GLOMERULAR FILTRATION RATE > 60.0 (>45); GLUCOSE, FASTING 91 MG/DL (80-110); POTASSIUM SERUM 3.5 MEQ/L (3.5-5.1); SODIUM LEVEL 143 MEQ/L (136-145); TOTAL PROTEIN 5.7 GM/DL (6.4-8.2)
[2017-08-26] MEDS ORDERED: CIPR-249 PO (09:11)
[2017-08-26] MEDS ORDERED: FLAG500T PO (09:11)
[2017-08-26] MEDS: PANTOPRAZOLE 40MG INJ (PROTONIX) (C9113) IV SCH (09:57)
[2017-08-26] MEDS: CIPROFLOXACIN 400 MG in APPROPRIATE DILUENT 1 EA IV SCH (09:57)
--- NOTE | 2017-08-27 14:29 | DSES ---
DATE OF ADMISSION: 08/24/2017 DATE OF DISCHARGE: 08/26/2017 CLINICAL MOLECULAR GENETICIST: Dr. Yanes PRIMARY CARE PROVIDER: Dr. Demetrio Parker DISCHARGE DIAGNOSES: Partial small bowel obstruction as per CT scan. Gastroenteritis, viral or bacteria possible versus flare of Crohn disease. Moderate to severe Crohn disease with ileocolitis, status post bowel resection in the past with ileocolonic anastomosis. Right middle lobe lung mass, stable since 2014. Bilateral renal cysts. Gastroesophageal reflux disease (GERD). DISCHARGE MEDICATIONS: - ciprofloxacin 500 mg by mouth twice a day - metronidazole 500 mg by mouth every 8 hours - black cohosh 20 mg by mouth daily - calcium 500 mg by mouth daily - Benadryl 25 mg by mouth as needed - fish oil 1000 mg by mouth twice a day - infliximab 400 mg IV every 8 weeks - multivitamins one tablet by mouth daily - omeprazole 20 mg daily HOSPITAL COURSE: This is a 62-year-old female presented to the hospital with a 2-day history of crampy abdominal pain, centered over the right lower quadrant, associated with nausea. Patient was found to have a partial small bowel obstruction as per CT scan. However, patient did say she was still passing gas and stool at home, so there was concern that it could be bacterial or viral gastroenteritis versus a flare of Crohn disease, so the patient was empirically started on ciprofloxacin and Flagyl as per the advice of health center manager. Patient was also seen by Dr. Hernandez from surgery. Patient was initially managed with IV fluids, nasogastric (NG) tube, and nothing by mouth. With that, her abdominal pain and distention and nausea resolved. Patient has been started on liquid diet, which she is tolerating. Patient has been passing gas, and she said that she has also had bowel movements. At present, patient's symptoms have mostly resolved, her vital signs are stable and, functionally, she is at her baseline, so can be discharged home. PHYSICAL EXAM: VITAL SIGNS: Temperature 97.2, pulse 70, respiratory rate 18, blood pressure 130/84, pulse oximetry 94% on room air. GENERAL: Patient awake, alert, oriented times three, sitting up in bed, in no acute distress. HEENT: Normocephalic, atraumatic. Moist mucous membranes. Anicteric eyes. CHEST: Clear to auscultation. CARDIOVASCULAR: S1, S2, regular. No rub, murmur, or gallop. ABDOMEN: Soft. Nontender. Bowel sounds present. EXTREMITIES: No edema. LABORATORY DATA: WBC 6.4, hemoglobin 12.3, platelets 231. Sodium 143, potassium 3.5, chloride 110, bicarbonate 23, BUN 8, creatinine 0.4, glucose 91, calcium 8.1, total bilirubin 1.7. AST/ALT normal. CRP 4.98. Lipase normal. Lactic normal. DISPOSITION: Patient is discharged home in stable condition. DISCHARGE INSTRUCTIONS: Patient advised to take full liquid diet for 2 days and then advance diet to soft diet as tolerated. Patient to follow with Dr. Yanes within a week. Patient to followup with primary care provider in 2 weeks. Activity as tolerated.
== END 2017-08-26 14:32 | disposition home or self-care (01) | DRG 245 ==
LOC: M ED 15:24 → M ED INP 23:51 → M MS5PR 08-25 00:36
PROVIDERS: ADMIT Internal Medicine; ATTEND Internal Medicine Nephrology
DX: K50.912 Crohn's disease, unspecified, with intestinal obstruction (principal); K21.9 Gastro-esophageal reflux disease without esophagitis; K52.9 Noninfective gastroenteritis and colitis, unspecified; Z79.899 Other long term (current) drug therapy; Z91.040 Latex allergy status; Z88.6 Allergy status to analgesic agent; Z91.041 Radiographic dye allergy status; Z88.8 Allergy status to other drugs, medicaments and biological substances; Z90.710 Acquired absence of both cervix and uterus

== ENCOUNTER 2017-09-21 08:28 | Outpatient (CLI) | payer OTHER ==
[~2017-09-21] VITALS: Ht 154.9 cm; Wt 65.0 kg
[~2017-09-21 08:28] MED LIST changes: +CIPR-249 PO; +FLAG500T PO; +INFL10VL IV; +OMEP20CA3 PO; +VITMTA PO
[2017-09-21] MEDS ORDERED: NS 1,000 ML IV SCH (09:00)
[2017-09-21] MEDS ORDERED: ACETAMINOPHEN TAB 650MG DOSE (2X325MG) PO ONE (09:00)
[2017-09-21] MEDS ORDERED: diphenhydrAMINE 25 MG CAP PO ONE (09:00)
[2017-09-21] MEDS ORDERED: INFLIXIMAB BIOSIMILAR 400 MG in NS 210 ML IV ONE (09:00)
== END 2017-09-21 11:30 | disposition home or self-care (01) ==
LOC: M INFU 08:28
PROVIDERS: ATTEND Internal Medicine Gastroenterology
DX: K50.00 Crohn's disease of small intestine without complications (principal); Z79.899 Other long term (current) drug therapy; Z91.040 Latex allergy status; Z91.041 Radiographic dye allergy status
CPT/HCPCS: 96413; 96415; Q5102

== ENCOUNTER 2017-11-07 12:19 | Outpatient (CLI) | payer OTHER ==
[2017-11-07] MEDS: ACETAMINOPHEN TAB 650MG DOSE (2X325MG) PO (12:45)
[2017-11-07] MEDS: diphenhydrAMINE 25 MG CAP PO (12:52)
[2017-11-07] MEDS: NS 1,000 ML IV (13:11)
[2017-11-07] MEDS: INFLIXIMAB BIOSIMILAR 400 MG in NS 210 ML IV (13:11)
== END 2017-11-07 15:25 | disposition home or self-care (01) ==
LOC: M INFU 12:19
DX: K50.00 Crohn's disease of small intestine without complications (principal); Z79.899 Other long term (current) drug therapy; Z91.040 Latex allergy status; Z80.0 Family history of malignant neoplasm of digestive organs
CPT/HCPCS: Q5102

== ENCOUNTER → 2017-12-07 | Outpatient (CLI) | payer OTHER | LOC: M RAD 16:16 | DX: R91.8 Other nonspecific abnormal finding of lung field (principal) | CPT/HCPCS: 71250 ==

== ENCOUNTER 2018-01-02 11:43 | Outpatient (CLI) | payer OTHER ==
[2018-01-02] MEDS: diphenhydrAMINE 25 MG CAP PO (12:11)
[2018-01-02] MEDS: ACETAMINOPHEN TAB 650MG DOSE (2X325MG) PO (12:11)
[2018-01-02] MEDS: NS 1,000 ML IV (12:23)
[2018-01-02] MEDS: INFLIXIMAB BIOSIMILAR 400 MG in NS 210 ML IV (12:24)
== END 2018-01-02 15:15 | disposition home or self-care (01) ==
LOC: M INFU 11:43
DX: K50.90 Crohn's disease, unspecified, without complications (principal); Z91.040 Latex allergy status; Z79.899 Other long term (current) drug therapy
CPT/HCPCS: Q5103

== ENCOUNTER 2018-02-28 10:20 | Outpatient (CLI) | payer OTHER ==
[2018-02-28] MEDS: ACETAMINOPHEN TAB 650MG DOSE (2X325MG) PO (10:40)
[2018-02-28] MEDS: diphenhydrAMINE 25 MG CAP PO (10:43)
[2018-02-28] MEDS: NS 1,000 ML IV (10:43)
[2018-02-28] MEDS: FILTER 1.2 MICRON (ADULT TPN/MANNITOL/REMICADE) XX (10:44)
[2018-02-28] MEDS: INFLIXIMAB BIOSIMILAR 400 MG in NS 210 ML IV (11:09)
== END 2018-02-28 13:25 | disposition home or self-care (01) ==
LOC: M INFU 10:20
DX: K50.00 Crohn's disease of small intestine without complications (principal); Z88.8 Allergy status to other drugs, medicaments and biological substances; Z91.040 Latex allergy status; Z91.041 Radiographic dye allergy status; Z79.899 Other long term (current) drug therapy
CPT/HCPCS: Q5103

== ENCOUNTER → 2018-07-11 | Outpatient (CLI) | payer OTHER | LOC: M WHC 14:50 | DX: Z12.31 Encounter for screening mammogram for malignant neoplasm of breast (principal); M81.0 Age-related osteoporosis without current pathological fracture; Z78.0 Asymptomatic menopausal state; M85.851 Other specified disorders of bone density and structure, right thigh; M85.852 Other specified disorders of bone density and structure, left thigh | CPT/HCPCS: 77067 ==

== ENCOUNTER 2018-08-29 08:21 | Outpatient (CLI) | payer OTHER ==
[2018-08-29] MEDS: ACETAMINOPHEN TAB 650MG DOSE (2X325MG) PO (08:50)
[2018-08-29] MEDS: diphenhydrAMINE 25 MG CAP PO (08:50)
[2018-08-29] MEDS: VEDOLIZUMAB 300 MG in NS 250 ML IV (09:19)
== END 2018-08-29 10:20 | disposition home or self-care (01) ==
LOC: M INFU 08:21
DX: K50.90 Crohn's disease, unspecified, without complications (principal); Z91.040 Latex allergy status; Z91.041 Radiographic dye allergy status
CPT/HCPCS: J3380

== ENCOUNTER 2018-09-27 08:49 | Outpatient (CLI) | payer OTHER ==
[~2018-09-27] VITALS: Ht 157.5 cm; Wt 66.0 kg
[2018-09-27 08:55] VITALS: BP_SYST 105; BP_SYST 125; BP_DIAS 51; BP_DIAS 85
[2018-09-27] MEDS ORDERED: diphenhydrAMINE 25 MG CAP PO ONE (10:00)
[2018-09-27] MEDS ORDERED: VEDOLIZUMAB 300 MG in NS 250 ML IV ONE (10:00)
[2018-09-27] MEDS ORDERED: ACETAMINOPHEN TAB 650MG DOSE (2X325MG) PO ONE (10:00)
[2018-09-27] MEDS ORDERED: ENTY1INJ IV (10:16)
[2018-09-27 10:20] VITALS: BP 123/74
== END 2018-09-27 10:20 | disposition home or self-care (01) ==
LOC: M INFU 08:49
PROVIDERS: ATTEND Internal Medicine Gastroenterology
DX: K50.90 Crohn's disease, unspecified, without complications (principal); Z91.040 Latex allergy status; Z91.041 Radiographic dye allergy status
CPT/HCPCS: 96365; J3380

== ENCOUNTER 2018-10-14 19:35 | Emergency (ER) | payer OTHER ==
[~2018-10-14] VITALS: Ht 154.9 cm; Wt 64.5 kg
[~2018-10-14 19:35] MED LIST changes: +ENTY1INJ IV
[2018-10-14] MEDS ORDERED: OMEP20CA3 PO (19:47)
[2018-10-14] MEDS ORDERED: OMEP10CASR PO (19:47)
[2018-10-14 20:22] LABS: BASO % 0.5 % (0.0-1.0); EOS # 0.3 10^3/uL (0.0-0.50); EOS % 3.3 % (0.0-3.0); HEMATOCRIT 41.7 % (36.0-47.0); HEMOGLOBIN 13.4 g/dl (12.0-15.5); LYMPH # 2.1 10^3/uL (1.5-4.5); LYMPH % 25.8 % (24.0-44.0); MEAN CORPUSCULAR HEMOGLOBIN 26.7 pg (27.0-33.0); MEAN CORPUSCULAR HGB CONC 32.1 g/dl (32.0-36.5); MEAN CORPUSCULAR VOLUME 83.1 fl (80.0-96.0); MONO # 0.6 10^3/uL (0.0-0.8); MONO % 6.9 % (0.0-5.0); NEUTROPHILS # 5.1 10^3/uL (1.8-7.7); NEUTROPHILS % 63.3 % (36.0-66.0); PLATELET COUNT, AUTOMATED 254 10^3/uL (150-450); RED BLOOD COUNT 5.02 10^6/uL (4.00-5.40); WHITE BLOOD COUNT 8.1 10^3/uL (4.0-10.0)
[2018-10-14] MEDS ORDERED: NS 500 ML IV ONE (20:30)
[2018-10-14 20:50] LABS: ALBUMIN 3.4 GM/DL (3.2-5.2); ALT/SGPT 22 U/L (12-78); BILIRUBIN,DIRECT 0.2 MG/DL (0.0-0.2); BILIRUBIN,TOTAL 0.8 MG/DL (0.2-1.0); BLOOD UREA NITROGEN 21 MG/DL (7-18); CALCIUM LEVEL 10.2 MG/DL (8.8-10.2); CARBON DIOXIDE LEVEL 26 MEQ/L (21-32); CHLORIDE LEVEL 103 MEQ/L (98-107); CREATININE FOR GFR 0.88 MG/DL (0.55-1.30); GLOMERULAR FILTRATION RATE > 60.0 (>45); GLUCOSE, FASTING 97 MG/DL (70-100); LIPASE 154 U/L (73-393); POTASSIUM SERUM 4.1 MEQ/L (3.5-5.1); SODIUM LEVEL 140 MEQ/L (136-145); TOTAL PROTEIN 7.2 GM/DL (6.4-8.2)
[2018-10-14 22:05] VITALS: BP 154/79
--- NOTE | 2018-10-15 09:08 | REP ---
Abdominal series: Three views. History: Abdomen pain. Comparison chest x-ray is from August 24, 2017. Findings: An ill-defined mass-like opacity is again seen in the right base, roughly 3.7 cm in greatest diameter. This appears slightly less prominent than on the comparison radiograph. This was visible on chest CT most recently December 07, 2017. It is a spiculated mass density in the right middle lobe. Lung ayala are otherwise clear. The pleural angles are sharp. Heart size is normal. Mediastinal contours and hilar silhouettes are unremarkable. No free subdiaphragmatic air is seen. Supine and erect views of the abdomen shows sutures and clips in the right central abdomen adjacent to what appears to be the cecum. Bowel gas pattern is otherwise normal. Psoas margins and flank stripes are intact. No mass or organomegaly is seen. SI joints are unremarkable. There is some degenerative sclerosis at the symphysis. No other bony abnormality. Impression: Postoperative changes right lower abdomen. Mass density persists in the right middle lobe slightly less prominent than on comparison chest x-ray 24 August 2017. Electronically Signed by Kayode Lama MD 10/15/2018 11:09 A
--- NOTE | 2018-10-16 12:51 | ED PDOC ---
Post-Departure Follow-Up certified letter sent to pt re formal read of abdl series. find out pcp and fax to pcp. if no pcp then refer to [facility] and ct chest. see report Altagracia Blanco MD Oct 16, 2018 12:51
== END 2018-10-14 22:25 | disposition home or self-care (01) ==
LOC: M ED 19:35
DX: K59.00 Constipation, unspecified (principal); R91.8 Other nonspecific abnormal finding of lung field; K50.90 Crohn's disease, unspecified, without complications; K21.9 Gastro-esophageal reflux disease without esophagitis; Z91.041 Radiographic dye allergy status; Z91.040 Latex allergy status; Z88.8 Allergy status to other drugs, medicaments and biological substances; Z79.899 Other long term (current) drug therapy

== ENCOUNTER → 2018-11-30 | Outpatient (CLI) | payer OTHER ==
[~2018-11-30] MED LIST changes: +OMEP10CASR PO
--- NOTE | 2018-11-30 16:49 | REP ---
Clinical: Hemoptysis. Technique: Axial noncontrast images from the thoracic inlet to the upper abdomen with coronal and sagittal re-formations. Comparison: 12/07/2017. Findings: The mass lesion in the right middle lobe is again identified but appears significantly less solid and overall decreased in size/volume measuring roughly 1.7 cm maximal AP diameter (previously measuring 2.6 cm in the same direction and plane). Associated spiculations and scarring are essentially unchanged. No new lesion is identified. No acute consolidation, new nodule or mass lesion appreciated. No effusion. No pneumothorax. Tracheobronchial tree appears patent. Subcentimeter mediastinal and hilar lymph nodes are nonspecific and stable. Mediastinum demonstrates relatively normal thoracic aorta, pulmonary vasculature and heart/pericardium. Surrounding musculoskeletal structures are intact. Limited upper abdomen demonstrates normal bilateral adrenal glands and suspected left peripelvic cysts. Impression: 1. Irregular mass in the right middle lobe with adjacent scarring and spiculations has decreased in size from prior examination. 2. No new acute mediastinal or pleuroparenchymal process. Electronically Signed by Neto Lin MD 11/30/2018 04:41 P
== END ==
LOC: M RAD 15:44
PROVIDERS: ATTEND Internal Medicine Pulmonary Disease
DX: R04.2 Hemoptysis (principal); R91.8 Other nonspecific abnormal finding of lung field

== ENCOUNTER 2019-01-22 08:46 | Outpatient (CLI) | payer OTHER ==
[2019-01-22] VITALS (8 sets, daily range): BP systolic 120–176; BP diastolic 67–88
[~2019-01-22] VITALS: Ht 154.9 cm; Wt 66.0 kg
[2019-01-22] MEDS ORDERED: diphenhydrAMINE 25MG PO PRIOR TO INFUSION PO ONE (09:00)
[2019-01-22] MEDS ORDERED: inFLIXimab INJECTION 400 MG in NS 210 ML IV ONE ×2 (09:00→10:30)
[2019-01-22] MEDS ORDERED: FILTER 1.2 MICRON (ADULT TPN/MANNITOL/REMICADE) XX ONE (09:00)
[2019-01-22] MEDS ORDERED: ACETAMINOPHEN 650MG PO PRIOR TO INFUSION PO ONE (09:00)
[2019-01-22] MEDS ORDERED: NS 1,000 ML IV SCH (09:00)
== END 2019-01-22 13:40 | disposition home or self-care (01) ==
LOC: M INFU 08:46
PROVIDERS: ATTEND Internal Medicine Gastroenterology
DX: K50.90 Crohn's disease, unspecified, without complications (principal)
CPT/HCPCS: 96413; 96415; J1745

== ENCOUNTER → 2019-04-18 | Outpatient (CLI) | payer OTHER ==
[~2019-04-18] MED LIST changes: -OMEP20CA3 PO; +OMEP20CA4 PO
--- NOTE | 2019-04-19 07:36 | REP ---
REASON: History of hemoptysis. All priors were reviewed, the latest 11/30/2018. The lack of intravenous contrast decreases the sensitivity of the exam. There are multiple borderline lymph nodes in the mediastinum status quo. No gross hilar masses have developed and the pulmonary johanna appear stable. Right hilar adenopathy cannot be ruled out, however. There are no pleural or pericardial effusions. There is no change in the appearance of the imaged upper abdomen or imaged osseous structures. Evaluation of the lung ayala again shows a spiculated mass in the right upper lobe which has a completely stable appearance compared to the latest prior. It measures approximately 1.7 cm measured in the same plane and at the same level as the prior exam. The small asymmetric density seen in the right lung apex is also unchanged from the latest prior. It is also unchanged from an older examination of 06/16/2016. No new abnormal nodules, masses, or opacities have developed. IMPRESSION: Stable CT examination of the chest as described above. Electronically Signed by Kevin Blankenship DO 04/19/2019 10:19 A
== END ==
LOC: M RAD 15:53
PROVIDERS: ATTEND Internal Medicine Pulmonary Disease
DX: R91.8 Other nonspecific abnormal finding of lung field (principal)

== ENCOUNTER → 2019-07-12 | Outpatient (CLI) | payer OTHER ==
--- NOTE | 2019-07-12 16:58 | REPMRS ---
Patient History The patient states she had a clinical breast exam in 07/2019. Patient is postmenopausal. No known family history of cancer. No Hormone Replacement Therapy 3D TOMOSYNTHESIS WAS PERFORMED. The [facility] lifetime risk for breast cancer is 5.1%. Digital Woman Screen Mammo: July 12, 2019 - Exam #: [id number] Bilateral CC and MLO view(s) were taken. Technologist: Zahira Alexandra, Technologist Prior study comparison: July 11, 2018, bilateral digital woman screen mammo performed at [facility]. July 07, 2017, digital woman screen mammo performed at [facility]. FINDINGS: There are scattered fibroglandular densities. There has been no change in the appearance of the mammogram from the prior studies. There is a mild amount of residual fibroglandular tissue which is fairly symmetric. There is no interval development of dominant mass, architectural distortion, or clustered microcalcification suggestive of malignancy. Assessment: BI-RADS/ACR category 1 mammogram. Negative Mammogram. Recommendation Routine screening mammogram in 1 year (for women over age 40). This mammogram was interpreted with the aid of an FDA-approved computer-aided dectection system. Electronically Signed By: Travon Graves MD 07/12/19 [id number]
== END ==
LOC: M WHC 14:56
PROVIDERS: ATTEND Nurse Practitioner Women's Health
DX: Z12.31 Encounter for screening mammogram for malignant neoplasm of breast (principal); Z78.0 Asymptomatic menopausal state

== ENCOUNTER 2019-09-03 08:42 | Outpatient (CLI) | payer OTHER ==
[~2019-09-03] VITALS: Ht 154.9 cm; Wt 66.0 kg
[2019-09-03] VITALS (7 sets, daily range): BP systolic 127–162; BP diastolic 64–84
[~2019-09-03 08:42] MED LIST changes: +OMEP-172 PO; -OMEP20CA4 PO
[2019-09-03] MEDS ORDERED: ACETAMINOPHEN 650MG PO PRIOR TO INFUSION PO ONE (09:00)
[2019-09-03] MEDS ORDERED: diphenhydrAMINE 25MG PO PRIOR TO INFUSION PO ONE (09:00)
[2019-09-03] MEDS ORDERED: FILTER 1.2 MICRON (ADULT TPN/MANNITOL/REMICADE) XX ONE (09:00)
[2019-09-03] MEDS ORDERED: inFLIXimab INJECTION 400 MG in NS 210 ML IV ONE (09:00)
[2019-09-03] MEDS: NS 1,000 ML IV SCH ×2 (09:00→09:15)
[2019-09-03] MEDS ORDERED: INFL10VL IV (09:08)
[2019-09-03] MEDS ORDERED: BLAC40CA PO (09:08)
== END 2019-09-03 11:40 | disposition home or self-care (01) ==
LOC: M INFU 08:42
PROVIDERS: ATTEND Internal Medicine Gastroenterology
DX: K50.90 Crohn's disease, unspecified, without complications (principal); Z88.6 Allergy status to analgesic agent; Z88.8 Allergy status to other drugs, medicaments and biological substances; Z91.040 Latex allergy status
CPT/HCPCS: 96413; 96415; J1745

== ENCOUNTER 2019-10-29 08:17 | Outpatient (CLI) | payer OTHER ==
[~2019-10-29] VITALS: Ht 154.9 cm; Wt 66.0 kg
[~2019-10-29 08:17] MED LIST changes: +BLAC40CA PO; -OMEP-172 PO; +OMEP1CAP73 PO
[2019-10-29 08:29] VITALS: BP 142/86
[2019-10-29] MEDS ORDERED: ACETAMINOPHEN 650MG PO PRIOR TO INFUSION PO ONE (09:00)
[2019-10-29] MEDS ORDERED: ZOFR4TAB16 PO (09:00)
[2019-10-29] MEDS ORDERED: inFLIXimab INJECTION 400 MG in NS 210 ML IV ONE (09:00)
[2019-10-29] MEDS ORDERED: NS 1,000 ML IV SCH (09:00)
[2019-10-29] MEDS ORDERED: diphenhydrAMINE 25MG PO PRIOR TO INFUSION PO ONE (09:00)
[2019-10-29] MEDS ORDERED: MIRA3350 PO (09:01)
[2019-10-29 12:06] VITALS: BP 139/70
[2019-10-29 12:30] VITALS: BP 146/81
== END 2019-10-29 12:30 | disposition home or self-care (01) ==
LOC: M INFU 08:17
PROVIDERS: ATTEND Internal Medicine Gastroenterology
DX: K50.90 Crohn's disease, unspecified, without complications (principal); Z88.8 Allergy status to other drugs, medicaments and biological substances; Z91.040 Latex allergy status
CPT/HCPCS: 96413; 96415; J1745

== ENCOUNTER 2019-12-24 07:42 | Outpatient (CLI) | payer OTHER ==
[~2019-12-24] VITALS: Ht 154.9 cm; Wt 66.0 kg
[~2019-12-24 07:42] MED LIST changes: +MIRA3350 PO; +ZOFR4TAB16 PO
[2019-12-24] MEDS ORDERED: ACETAMINOPHEN 650MG PO PRIOR TO INFUSION PO ONE (08:00)
[2019-12-24] MEDS ORDERED: inFLIXimab INJECTION 400 MG in NS 210 ML IV ONE (08:00)
[2019-12-24] MEDS ORDERED: NS 1,000 ML IV SCH (08:00)
[2019-12-24] MEDS ORDERED: diphenhydrAMINE 25MG PO PRIOR TO INFUSION PO ONE (08:00)
== END 2019-12-24 09:55 | disposition home or self-care (01) ==
LOC: M INFU 07:42
PROVIDERS: ATTEND Internal Medicine Gastroenterology
DX: K50.90 Crohn's disease, unspecified, without complications (principal); Z88.6 Allergy status to analgesic agent; Z88.8 Allergy status to other drugs, medicaments and biological substances; Z91.040 Latex allergy status
CPT/HCPCS: 96413; J1745

== ENCOUNTER → 2020-02-12 | Outpatient (CLI) | payer OTHER ==
[~2020-02-12] MED LIST changes: +AMLO1TAB24 PO; +D31000TA2 PO
== END ==
LOC: M LABSMTC 13:35
PROVIDERS: ATTEND Family Medicine
DX: Z11.59 Encounter for screening for other viral diseases (principal); Z20.828 Contact with and (suspected) exposure to other viral communicable diseases
CPT/HCPCS: C8903; U0003

== ENCOUNTER 2020-04-14 07:46 | Outpatient (CLI) | payer OTHER ==
[~2020-04-14] VITALS: Ht 154.9 cm; Wt 66.0 kg
[~2020-04-14 07:46] MED LIST changes: -AMLO1TAB24 PO; -D31000TA2 PO
[2020-04-14] MEDS ORDERED: NS 1,000 ML IV SCH (08:00)
[2020-04-14] MEDS ORDERED: inFLIXimab INJECTION 400 MG in NS 210 ML IV ONE (08:00)
[2020-04-14] MEDS ORDERED: ACETAMINOPHEN 650MG PO PRIOR TO INFUSION PO ONE (08:00)
[2020-04-14] MEDS ORDERED: diphenhydrAMINE 25MG PO PRIOR TO INFUSION PO ONE (08:00)
[2020-04-14 08:40] VITALS: BP 152/79
[2020-04-14 08:57] VITALS: BP 119/61
[2020-04-14 09:40] VITALS: BP 151/85
== END 2020-04-14 09:45 | disposition home or self-care (01) ==
LOC: M INFU 07:46
PROVIDERS: ATTEND Internal Medicine Gastroenterology
DX: K50.90 Crohn's disease, unspecified, without complications (principal)
CPT/HCPCS: 96413; J1745

== ENCOUNTER 2020-06-11 07:53 | Outpatient (CLI) | payer OTHER ==
[~2020-06-11] VITALS: Ht 154.9 cm; Wt 66.0 kg
[2020-06-11] VITALS (8 sets, daily range): BP systolic 126–165; BP diastolic 75–89
[2020-06-11] MEDS ORDERED: diphenhydrAMINE 25MG CAP As Ordered ONE (08:08)
[2020-06-11] MEDS ORDERED: NS 1,000 ML IV SCH (08:15)
[2020-06-11] MEDS ORDERED: ACETAMINOPHEN 650MG PO PRIOR TO INFUSION PO ONE (08:15)
[2020-06-11] MEDS ORDERED: inFLIXimab INJECTION 400 MG in NS 210 ML IV ONE (08:15)
[2020-06-11] MEDS ORDERED: diphenhydrAMINE 25MG PO PRIOR TO INFUSION PO ONE (08:15)
== END 2020-06-11 10:30 | disposition home or self-care (01) ==
LOC: M INFU 07:53
PROVIDERS: ATTEND Internal Medicine Gastroenterology
DX: K50.00 Crohn's disease of small intestine without complications (principal)
CPT/HCPCS: 96413; 96415; J1745

== ENCOUNTER → 2020-07-14 | Outpatient (CLI) | payer OTHER ==
--- NOTE | 2020-07-14 10:41 | REPMRS ---
Patient History The patient states she has not had a clinical breast exam in over a year. No known family history of cancer. No Hormone Replacement Therapy Digital Woman Screen Mammo: July 14, 2020 - Exam #: [id number] Bilateral CC and MLO view(s) were taken. Technologist: Ingrid Roca, Technologist Prior study comparison: July 12, 2019, bilateral digital woman screen mammo performed at [facility]. July 11, 2018, bilateral digital woman screen mammo performed at [facility]. July 07, 2017, digital woman screen mammo performed at [facility]. FINDINGS: There are scattered fibroglandular densities. The [employer]para volumetric breast density category is:B. There has been no change in the appearance of the mammogram from the prior studies. There is a mild amount of scattered fibroglandular density which is fairly symmetric. There is no interval development of dominant mass, architectural distortion, or grouped microcalcification suggestive of malignancy. 3-D tomosynthesis shows no additional findings. Assessment: BI-RADS/ACR category 1 mammogram. Negative Mammogram. Recommendation Routine screening mammogram of both breasts in 1 year (for women over age 40). This patient's Lifetime Breast Cancer Risk is estimated at 4.9 %. This mammogram was interpreted with the aid of an FDA-approved computer-aided dectection system. Electronically Signed By: Brayden Lama MD 07/14/20 [id number]
--- NOTE | 2020-07-22 15:52 | DEXA ---
AP SPINE L1 - L4 0.980 -1.7 -0.2 LT FEMUR TOTAL 0.862 -1.2 0.0 LT NECK 0.787 -1.8 0.4 RT FEMUR TOTAL 0.862 -1.2 0.0 RT NECK 0.801 -1.7 -0.3 TOTAL BODY TOTAL OTHER COMMENTS: There is low bone density of the spine and hips. The density of the spine has decreased 7.9% since the initial exam on 07/20/2007. The decreased 1.5% since the most recent exam on 07/11/2018. The density of the left hip has decreased 3.8% since the initial exam on 07/20/2007. The density of the left hip has decreased 0.5% since the most recent exam on 07/11/2018. The density of the right hip has decreased 3.1% since the initial exam on 07/20/2007. The density of the right hip has decreased 4.0% since the most recent exam on 07/11/2018. FOLLOW-UP: Recommendation for the next bone density exam: 2 years. JAKE
== END ==
LOC: M WHC 08:40
PROVIDERS: ATTEND Nurse Practitioner Women's Health
DX: Z12.31 Encounter for screening mammogram for malignant neoplasm of breast (principal); M85.88 Other specified disorders of bone density and structure, other site; M85.851 Other specified disorders of bone density and structure, right thigh; M85.852 Other specified disorders of bone density and structure, left thigh

== ENCOUNTER 2020-08-04 07:48 | Outpatient (CLI) | payer OTHER ==
[2020-08-04] VITALS (9 sets, daily range): BP systolic 141–178; BP diastolic 78–99
[~2020-08-04] VITALS: Ht 154.9 cm; Wt 66.0 kg
[2020-08-04] MEDS ORDERED: inFLIXimab INJECTION 400 MG in NS 210 ML IV ONE (08:00)
[2020-08-04] MEDS ORDERED: ACETAMINOPHEN 650MG PO PRIOR TO INFUSION PO ONE (08:00)
[2020-08-04] MEDS ORDERED: NS 1,000 ML IV SCH (08:00)
[2020-08-04] MEDS ORDERED: diphenhydrAMINE 25MG PO PRIOR TO INFUSION PO ONE (08:00)
== END 2020-08-04 10:45 | disposition home or self-care (01) ==
LOC: M INFU 07:48
PROVIDERS: ATTEND Internal Medicine Gastroenterology
DX: K50.90 Crohn's disease, unspecified, without complications (principal)
CPT/HCPCS: 96413; 96415; J1745

== ENCOUNTER 2020-09-29 07:41 | Outpatient (CLI) | payer OTHER ==
[~2020-09-29] VITALS: Ht 154.9 cm; Wt 66.0 kg
[2020-09-29] MEDS ORDERED: ACETAMINOPHEN 650MG PO PRIOR TO INFUSION PO ONE (08:00)
[2020-09-29] MEDS ORDERED: diphenhydrAMINE 25MG PO PRIOR TO INFUSION PO ONE (08:00)
[2020-09-29] MEDS ORDERED: NS 1,000 ML IV SCH (08:00)
[2020-09-29] MEDS ORDERED: inFLIXimab INJECTION 400 MG in NS 210 ML IV ONE (08:00)
[2020-09-29] MEDS ORDERED: D31000TA2 PO (08:07)
[2020-09-29] MEDS ORDERED: AMLO1TAB24 PO (08:07)
[2020-09-29 08:20] VITALS: BP 159/89
[2020-09-29 08:40] VITALS: BP 133/86
[2020-09-29 09:20] VITALS: BP 155/74
== END 2020-09-29 09:45 | disposition home or self-care (01) ==
LOC: M INFU 07:41
PROVIDERS: ATTEND Internal Medicine Gastroenterology
DX: K50.90 Crohn's disease, unspecified, without complications (principal)
CPT/HCPCS: 96413; J1745

== ENCOUNTER 2020-11-24 08:39 | Outpatient (CLI) | payer OTHER ==
[~2020-11-24] VITALS: Ht 154.9 cm; Wt 66.0 kg
[~2020-11-24 08:39] MED LIST changes: +AMLO1TAB24 PO; +D31000TA2 PO
[2020-11-24 08:40] VITALS: BP 156/83
[2020-11-24 09:00] VITALS: BP 156/83
[2020-11-24] MEDS ORDERED: inFLIXimab INJECTION 400 MG in NS 210 ML IV ONE (09:00)
[2020-11-24] MEDS ORDERED: NS 1,000 ML IV SCH (09:00)
[2020-11-24] MEDS ORDERED: ACETAMINOPHEN 650MG PO PRIOR TO INFUSION PO ONE (09:00)
[2020-11-24] MEDS ORDERED: diphenhydrAMINE 25MG PO PRIOR TO INFUSION PO ONE (09:00)
[2020-11-24 09:30] VITALS: BP 129/74
[2020-11-24 10:45] VITALS: BP 126/79
== END 2020-11-24 10:45 | disposition home or self-care (01) ==
LOC: M INFU 08:39
PROVIDERS: ATTEND Internal Medicine Gastroenterology
DX: K50.90 Crohn's disease, unspecified, without complications (principal); Z88.8 Allergy status to other drugs, medicaments and biological substances; Z91.040 Latex allergy status
CPT/HCPCS: 96365; J1745

== ENCOUNTER → 2020-12-03 | Outpatient (CLI) | payer OTHER | LOC: M LABSMTC 09:32 | PROVIDERS: ATTEND Anesthesiology | DX: Z01.812 Encounter for preprocedural laboratory examination (principal); Z20.822 Contact with and (suspected) exposure to COVID-19 ==

== ENCOUNTER → 2020-12-03 | Outpatient (CLI) | payer OTHER | LOC: M LAB 08:08 | PROVIDERS: ATTEND Internal Medicine Gastroenterology | DX: K50.00 Crohn's disease of small intestine without complications (principal); R63.5 Abnormal weight gain; R19.7 Diarrhea, unspecified ==

== ENCOUNTER 2020-12-08 09:21 | Day surgery (SDC) | payer OTHER ==
[~2020-12-08] VITALS: Ht 154.9 cm; Wt 62.1 kg
[~2020-12-08 09:21] MED LIST changes: +NS 1,000 ML IV ONE
--- NOTE | 2020-12-08 10:47 | ROOR ---
Patient Name: Nilesh Oleary Procedure Date: 12/08/2020 10:25 AM Date of : 1955 Age: 65 Room: [facility] Gender: Female Note Status: Finalized Procedure: Colonoscopy to Anastomosis + biopsies Indications: High risk colon cancer surveillance: Crohn's colitis of 8 (or more) years duration with one-third (or more) of the colon involved Providers: James Yanes MD Referring MD: SCOTT BUENROSTRO MD Requesting Provider: Medicines: Monitored Anesthesia Care Complications: No immediate complications. Procedure: Pre-Anesthesia Assessment: - The heart rate, respiratory rate, oxygen saturations, blood pressure, adequacy of pulmonary ventilation, and response to care were monitored throughout the procedure. The Colonoscope was introduced through the anus and advanced to the ileocolonic anastomosis. The colonoscopy was performed without difficulty. The patient tolerated the procedure well. The quality of the bowel preparation was good. Findings: The perianal and digital rectal examinations were normal. Non-bleeding internal hemorrhoids were found during retroflexion. The hemorrhoids were small and Grade I (internal hemorrhoids that do not prolapse). There was evidence of a prior end-to-side ileo-colonic anastomosis at the hepatic flexure. This was patent. The anastomosis was not traversed. Biopsies were taken with a cold forceps for histology. The exam was otherwise without abnormality on direct and retroflexion views. Impression: - Non-bleeding internal hemorrhoids. - Patent end-to-side ileo-colonic anastomosis. Biopsied. - The examination was otherwise normal on direct and retroflexion views. - The entire examined colon is normal on direct and retroflexion views. Recommendation: - Patient has a contact number available for emergencies. The signs and symptoms of potential delayed complications were discussed with the patient. Return to normal activities tomorrow. Written discharge instructions were provided to the patient. - Resume previous diet. - Discharge patient to home. - Continue present medications. - Await pathology results. - Telephone GI clinic for pathology results in 1 week. - Return to referring physician. - Repeat colonoscopy in 5 years for surveillance. - The findings and recommendations were discussed with the patient. Procedure Code(s): --- Professional --- 69479, Colonoscopy, flexible; with biopsy, single or multiple Diagnosis Code(s): --- Professional --- K50.10, Crohn's disease of large intestine without complications K64.0, First degree hemorrhoids Z98.0, Intestinal bypass and anastomosis status CPT copyright 2019 [employer]. All rights reserved. The codes documented in this report are preliminary and upon campaign consultant review may be revised to meet current compliance requirements. James Yanes MD James Yanes MD 12/08/2020 10:46:30 AM Electronically signed by James Yanes MD Number of Addenda: 0 Note Initiated On: 12/08/2020 10:25 AM Estimated Blood Loss: Estimated blood loss: none.
[2020-12-08] MEDS ORDERED: propofoL 200 MG/20 ML VIAL As Ordered ONE (10:52)
[2020-12-08] MEDS ORDERED: LIDOCAINE 2% 100MG/5ML SDV (FOR ANES.) As Ordered ONE (10:52)
[2020-12-08 11:10] VITALS: BP 131/94
== END 2020-12-08 13:26 | disposition home or self-care (01) ==
LOC: M OPP 09:21
PROVIDERS: ATTEND Internal Medicine Gastroenterology
DX: K50.10 Crohn's disease of large intestine without complications (principal); D12.6 Benign neoplasm of colon, unspecified; K64.0 First degree hemorrhoids; Z98.0 Intestinal bypass and anastomosis status; I10 Essential (primary) hypertension; K21.9 Gastro-esophageal reflux disease without esophagitis; Z88.6 Allergy status to analgesic agent; Z88.8 Allergy status to other drugs, medicaments and biological substances; Z91.040 Latex allergy status; Z91.041 Radiographic dye allergy status; Z79.899 Other long term (current) drug therapy

== ENCOUNTER 2021-01-19 07:39 | Outpatient (CLI) | payer OTHER ==
[2021-01-19] VITALS (7 sets, daily range): BP systolic 134–158; BP diastolic 72–100
[~2021-01-19] VITALS: Ht 154.9 cm; Wt 66.0 kg
[~2021-01-19 07:39] MED LIST changes: -NS 1,000 ML IV ONE
[2021-01-19] MEDS ORDERED: inFLIXimab INJECTION 400 MG in NS 210 ML IV ONE (08:00)
[2021-01-19] MEDS ORDERED: NS 1,000 ML IV SCH (08:00)
[2021-01-19] MEDS ORDERED: ACETAMINOPHEN 650MG PO PRIOR TO INFUSION PO ONE (08:00)
[2021-01-19] MEDS ORDERED: diphenhydrAMINE 25MG PO PRIOR TO INFUSION PO ONE (08:00)
== END 2021-01-19 10:52 | disposition home or self-care (01) ==
LOC: M INFU 07:39
PROVIDERS: ATTEND Internal Medicine Gastroenterology
DX: K50.90 Crohn's disease, unspecified, without complications (principal); Z91.040 Latex allergy status; Z88.6 Allergy status to analgesic agent
CPT/HCPCS: 96413; 96415; J1745

== ENCOUNTER 2021-03-16 13:29 | Outpatient (CLI) | payer OTHER ==
[~2021-03-16] VITALS: Ht 154.9 cm; Wt 66.0 kg
[2021-03-16] MEDS ORDERED: inFLIXimab INJECTION 400 MG in NS 210 ML IV ONE (13:30)
[2021-03-16] MEDS ORDERED: diphenhydrAMINE 25MG PO PRIOR TO INFUSION PO ONE (13:30)
[2021-03-16] MEDS ORDERED: NS 1,000 ML IV SCH (13:30)
[2021-03-16] MEDS ORDERED: ACETAMINOPHEN 650MG PO PRIOR TO INFUSION PO ONE (13:30)
[2021-03-16 14:00] VITALS: BP 187/82
[2021-03-16 14:15] VITALS: BP 134/80
[2021-03-16 14:30] VITALS: BP 123/64
[2021-03-16 14:45] VITALS: BP 129/75
[2021-03-16 15:00] VITALS: BP 147/79
[2021-03-16 15:40] VITALS: BP 123/75
== END 2021-03-16 16:10 | disposition home or self-care (01) ==
LOC: M INFU 13:29
PROVIDERS: ATTEND Internal Medicine Gastroenterology
DX: K50.90 Crohn's disease, unspecified, without complications (principal)
CPT/HCPCS: 96413; 96415; J1745

== ENCOUNTER 2021-05-11 13:29 | Outpatient (CLI) | payer MEDICARE, OTHER ==
[~2021-05-11] VITALS: Ht 165.1 cm; Wt 88.0 kg
[2021-05-11] VITALS (7 sets, daily range): BP systolic 125–161; BP diastolic 74–88
[2021-05-11] MEDS ORDERED: inFLIXimab INJECTION 400 MG in NS 210 ML IV ONE (13:30)
[2021-05-11] MEDS ORDERED: diphenhydrAMINE 25MG PO PRIOR TO INFUSION PO ONE (13:30)
[2021-05-11] MEDS ORDERED: ACETAMINOPHEN 650MG PO PRIOR TO INFUSION PO ONE (13:30)
[2021-05-11] MEDS ORDERED: NS 1,000 ML IV SCH (13:30)
== END 2021-05-11 16:15 | disposition home or self-care (01) ==
LOC: M INFU 13:29
PROVIDERS: ATTEND Internal Medicine Gastroenterology
DX: K50.90 Crohn's disease, unspecified, without complications (principal); Z88.6 Allergy status to analgesic agent; Z91.040 Latex allergy status; Z91.041 Radiographic dye allergy status
CPT/HCPCS: 96413; 96415; J1745

== ENCOUNTER 2021-07-06 13:16 | Outpatient (CLI) | payer MEDICARE, MEDICAID ==
[~2021-07-06] VITALS: Ht 165.1 cm; Wt 66.0 kg
[2021-07-06] MEDS ORDERED: inFLIXimab INJECTION 400 MG in NS 210 ML IV ONE (13:30)
[2021-07-06] MEDS ORDERED: ACETAMINOPHEN 650MG PO PRIOR TO INFUSION PO ONE (13:30)
[2021-07-06] MEDS ORDERED: diphenhydrAMINE 25MG PO PRIOR TO INFUSION PO ONE (13:30)
[2021-07-06] MEDS ORDERED: NS 1,000 ML IV SCH (13:30)
[2021-07-06 13:35] VITALS: BP 172/88
[2021-07-06 14:20] VITALS: BP 172/88
[2021-07-06 15:00] VITALS: BP 124/77
[2021-07-06 16:24] VITALS: BP 131/79
== END 2021-07-06 16:25 | disposition home or self-care (01) ==
LOC: M INFU 13:16
PROVIDERS: ATTEND Internal Medicine Gastroenterology
DX: K50.90 Crohn's disease, unspecified, without complications (principal); Z88.8 Allergy status to other drugs, medicaments and biological substances; Z91.040 Latex allergy status; Z91.041 Radiographic dye allergy status
CPT/HCPCS: 96413; 96415; J1745

== ENCOUNTER → 2021-07-15 | Outpatient (CLI) | payer MEDICARE, OTHER ==
[~2021-07-15] MED LIST changes: +CALCTAB38 PO
== END ==
LOC: M WHC 15:08
PROVIDERS: ATTEND Nurse Practitioner Women's Health
DX: Z12.31 Encounter for screening mammogram for malignant neoplasm of breast (principal); Z78.0 Asymptomatic menopausal state

== ENCOUNTER 2021-08-31 13:09 | Outpatient (CLI) | payer MEDICARE, OTHER ==
[~2021-08-31] VITALS: Ht 154.9 cm; Wt 66.0 kg
[~2021-08-31 13:09] MED LIST changes: -CALCTAB38 PO
[2021-08-31 13:15] VITALS: BP 166/87
[2021-08-31] MEDS ORDERED: inFLIXimab INJECTION 400 MG in NS 210 ML IV ONE (13:30)
[2021-08-31] MEDS ORDERED: NS 1,000 ML IV SCH (13:30)
[2021-08-31] MEDS ORDERED: ACETAMINOPHEN 650MG PO PRIOR TO INFUSION PO ONE (13:30)
[2021-08-31] MEDS ORDERED: diphenhydrAMINE 25MG PO PRIOR TO INFUSION PO ONE (13:30)
[2021-08-31] MEDS ORDERED: CALCTAB38 PO (13:49)
[2021-08-31 14:15] VITALS: BP 133/77
[2021-08-31 14:30] VITALS: BP 143/72
[2021-08-31 15:00] VITALS: BP 123/76
[2021-08-31 15:30] VITALS: BP 121/70
[2021-08-31 16:05] VITALS: BP 130/79
== END 2021-08-31 16:15 | disposition home or self-care (01) ==
LOC: M INFU 13:09
PROVIDERS: ATTEND Internal Medicine Gastroenterology
DX: K50.90 Crohn's disease, unspecified, without complications (principal); Z88.6 Allergy status to analgesic agent; Z91.040 Latex allergy status; Z91.041 Radiographic dye allergy status
CPT/HCPCS: 96413; 96415; J1745

== ENCOUNTER 2021-11-16 22:46 | Emergency (ER) | payer MEDICARE, OTHER ==
[~2021-11-16] VITALS: Ht 154.9 cm; Wt 63.6 kg
[~2021-11-16 22:46] MED LIST changes: +CALCTAB38 PO
[2021-11-17 02:47] VITALS: BP 151/86
== END 2021-11-17 02:40 | disposition home or self-care (01) ==
LOC: M ED 22:46 → EDBD 22:46 → M ED 11-17 02:40
DX: U07.1 COVID-19 (principal); K50.919 Crohn's disease, unspecified, with unspecified complications; Z79.899 Other long term (current) drug therapy; Z88.8 Allergy status to other drugs, medicaments and biological substances; Z91.041 Radiographic dye allergy status; Z91.040 Latex allergy status

== ENCOUNTER → 2021-12-01 | Outpatient (REF) | payer OTHER, MEDICAID, MEDICARE ==
[~2021-12-01] MED LIST changes: -D31000TA2 PO; +VITA100093 PO
== END ==
LOC: M LAB REF 10:25
PROVIDERS: ATTEND Internal Medicine Gastroenterology
DX: K50.00 Crohn's disease of small intestine without complications (principal)

== ENCOUNTER 2021-12-21 13:38 | Outpatient (CLI) | payer MEDICARE, OTHER ==
[~2021-12-21] VITALS: Ht 154.9 cm; Wt 66.0 kg
[2021-12-21 13:35] VITALS: BP 168/87
[2021-12-21] MEDS ORDERED: diphenhydrAMINE 25MG PO PRIOR TO INFUSION PO ONE (14:00)
[2021-12-21] MEDS ORDERED: inFLIXimab INJECTION 400 MG in NS 210 ML IV ONE (14:00)
[2021-12-21] MEDS ORDERED: NS 1,000 ML IV SCH (14:00)
[2021-12-21] MEDS ORDERED: ACETAMINOPHEN 650MG PO PRIOR TO INFUSION PO ONE (14:00)
[2021-12-21 14:30] VITALS: BP 145/81
[2021-12-21 14:34] VITALS: BP 168/87
[2021-12-21 15:00] VITALS: BP 139/81
[2021-12-21 15:15] VITALS: BP 131/78
[2021-12-21 16:20] VITALS: BP 156/84
== END 2021-12-21 16:20 | disposition home or self-care (01) ==
LOC: M INFU 13:38
PROVIDERS: ATTEND Internal Medicine Gastroenterology
DX: K50.90 Crohn's disease, unspecified, without complications (principal); Z91.040 Latex allergy status
CPT/HCPCS: 96365; 96366; J1745

== ENCOUNTER 2022-02-15 13:52 | Outpatient (CLI) | payer MEDICARE, OTHER ==
[~2022-02-15] VITALS: Ht 154.9 cm; Wt 66.0 kg
[2022-02-15] MEDS ORDERED: ACETAMINOPHEN 650MG PO PRIOR TO INFUSION PO ONE (14:00)
[2022-02-15] MEDS ORDERED: inFLIXimab INJECTION 400 MG in NS 210 ML IV ONE (14:00)
[2022-02-15] MEDS ORDERED: NS 1,000 ML IV SCH (14:00)
[2022-02-15] MEDS ORDERED: diphenhydrAMINE 25MG PO PRIOR TO INFUSION PO ONE (14:00)
[2022-02-15 14:10] VITALS: BP 152/82
[2022-02-15 14:57] VITALS: BP 125/75
[2022-02-15 15:30] VITALS: BP 126/79
[2022-02-15 16:50] VITALS: BP 131/77
== END 2022-02-15 16:50 | disposition home or self-care (01) ==
LOC: M INFU 13:52
PROVIDERS: ATTEND Internal Medicine Gastroenterology
DX: K50.919 Crohn's disease, unspecified, with unspecified complications (principal)
CPT/HCPCS: 96365; 96366; J1745

== ENCOUNTER 2022-04-12 08:25 | Outpatient (CLI) | payer OTHER ==
[~2022-04-12] VITALS: Ht 154.9 cm; Wt 63.6 kg
[2022-04-12] VITALS (8 sets, daily range): BP systolic 125–142; BP diastolic 78–91
[2022-04-12] MEDS ORDERED: inFLIXimab INJECTION 400 MG in NS 210 ML IV ONE (09:00)
[2022-04-12] MEDS ORDERED: ACETAMINOPHEN 650MG PO PRIOR TO INFUSION PO ONE (09:00)
[2022-04-12] MEDS ORDERED: diphenhydrAMINE 25MG PO PRIOR TO INFUSION PO ONE (09:00)
[2022-04-12] MEDS ORDERED: NS 1,000 ML IV SCH (09:00)
== END 2022-04-12 11:20 | disposition home or self-care (01) ==
LOC: M INFU 08:25
PROVIDERS: ATTEND Internal Medicine Gastroenterology
DX: K50.919 Crohn's disease, unspecified, with unspecified complications (principal); Z88.8 Allergy status to other drugs, medicaments and biological substances
CPT/HCPCS: 96413; 96415; J1745

== ENCOUNTER 2022-06-08 08:40 | Outpatient (CLI) | payer OTHER ==
[~2022-06-08] VITALS: Ht 154.9 cm; Wt 66.0 kg
[2022-06-08 08:40] VITALS: BP 139/84
[~2022-06-08 08:40] MED LIST changes: +FISH10005 PO; -FISH7.5C PO
[2022-06-08] MEDS ORDERED: ACETAMINOPHEN 650MG PO PRIOR TO INFUSION PO ONE (09:00)
[2022-06-08] MEDS ORDERED: inFLIXimab INJECTION 400 MG in NS 210 ML IV ONE (09:00)
[2022-06-08] MEDS ORDERED: NS 1,000 ML IV SCH (09:00)
[2022-06-08] MEDS ORDERED: diphenhydrAMINE 25MG PO PRIOR TO INFUSION PO ONE (09:00)
[2022-06-08 09:30] VITALS: BP 132/80
[2022-06-08 10:00] VITALS: BP 132/89
[2022-06-08 10:31] VITALS: BP 163/91
[2022-06-08 11:19] VITALS: BP 154/87
== END 2022-06-08 11:20 | disposition home or self-care (01) ==
LOC: M INFU 08:40
PROVIDERS: ATTEND Internal Medicine Gastroenterology
DX: K50.90 Crohn's disease, unspecified, without complications (principal); Z88.8 Allergy status to other drugs, medicaments and biological substances
CPT/HCPCS: 96413; 96415; J1745

== ENCOUNTER → 2022-07-16 | Outpatient (REF) | payer MEDICARE, OTHER, MEDICAID | LOC: M PLALAB 14:02 | PROVIDERS: ATTEND Nurse Practitioner Family | DX: Z12.4 Encounter for screening for malignant neoplasm of cervix (principal); N95.2 Postmenopausal atrophic vaginitis | CPT/HCPCS: 87624; G0123 ==

== ENCOUNTER → 2022-07-16 | Outpatient (CLI) | payer MEDICARE | LOC: M WHC 13:37 | PROVIDERS: ATTEND Nurse Practitioner Family | DX: Z12.31 Encounter for screening mammogram for malignant neoplasm of breast (principal); Z13.820 Encounter for screening for osteoporosis; M85.89 Other specified disorders of bone density and structure, multiple sites ==

== ENCOUNTER 2022-08-03 09:00 | Outpatient (CLI) | payer OTHER ==
[~2022-08-03 09:00] MED LIST changes: +ACETAMINOPHEN 650MG PO PRIOR TO INFUSION PO ONE; +NS 1,000 ML IV SCH; +diphenhydrAMINE 25MG PO PRIOR TO INFUSION PO ONE; +inFLIXimab INJECTION 400 MG in NS 210 ML IV ONE
[2022-08-03 09:30] VITALS: BP 166/83
[2022-08-03 10:00] VITALS: BP 138/76
[2022-08-03 10:30] VITALS: BP 138/83
[2022-08-03 11:00] VITALS: BP 129/82
[2022-08-03 11:30] VITALS: BP 138/85
== END 2022-08-03 11:40 | disposition home or self-care (01) ==
LOC: M INFU 09:00
PROVIDERS: ATTEND Internal Medicine Gastroenterology
DX: K50.90 Crohn's disease, unspecified, without complications (principal); Z91.041 Radiographic dye allergy status; Z91.040 Latex allergy status; Z88.6 Allergy status to analgesic agent; Z88.8 Allergy status to other drugs, medicaments and biological substances
CPT/HCPCS: 96413; 96415; J1745

== ENCOUNTER 2022-09-28 09:00 | Outpatient (CLI) | payer MEDICARE, MEDICAID ==
[~2022-09-28] VITALS: Ht 157.5 cm; Wt 66.0 kg
[2022-09-28 09:09] VITALS: BP 138/87
[2022-09-28 10:20] VITALS: BP 117/68
[2022-09-28 10:35] VITALS: BP 129/74
[2022-09-28 11:05] VITALS: BP 143/7
[2022-09-28 12:05] VITALS: BP 135/69
== END 2022-09-28 12:05 | disposition home or self-care (01) ==
LOC: M INFU 09:00
PROVIDERS: ATTEND Internal Medicine Gastroenterology
DX: K50.90 Crohn's disease, unspecified, without complications (principal); Z88.8 Allergy status to other drugs, medicaments and biological substances
CPT/HCPCS: 96413; 96415; J1745

== ENCOUNTER → 2022-11-23 | Outpatient (CLI) | payer MEDICARE, MEDICAID | LOC: M INFU 09:13 | PROVIDERS: ATTEND Internal Medicine Gastroenterology | DX: K50.90 Crohn's disease, unspecified, without complications (principal); Z53.9 Procedure and treatment not carried out, unspecified reason ==

== ENCOUNTER 2022-11-26 09:30 | Outpatient (CLI) | payer MEDICARE, MEDICAID ==
[2022-11-26 09:30] VITALS: BP 179/99
[2022-11-26 11:00] VITALS: BP 143/94
[2022-11-26 11:45] VITALS: BP 127/74
[2022-11-26 12:25] VITALS: BP 146/85
== END 2022-11-26 12:25 | disposition home or self-care (01) ==
LOC: M INFU 09:30
PROVIDERS: ATTEND Internal Medicine Gastroenterology
DX: K50.90 Crohn's disease, unspecified, without complications (principal); Z88.8 Allergy status to other drugs, medicaments and biological substances
CPT/HCPCS: 96413; 96415; J1745

== ENCOUNTER 2023-01-18 09:30 | Outpatient (CLI) | payer MEDICARE ==
[~2023-01-18] VITALS: Ht 157.5 cm; Wt 66.0 kg
[2023-01-18 09:15] VITALS: BP 153/91
[2023-01-18 10:15] VITALS: BP 130/77
[2023-01-18 10:45] VITALS: BP 126/78
[2023-01-18 11:45] VITALS: BP 152/76
== END 2023-01-18 11:50 | disposition home or self-care (01) ==
LOC: M INFU 09:30
PROVIDERS: ATTEND Internal Medicine Gastroenterology
DX: K50.90 Crohn's disease, unspecified, without complications (principal); Z88.8 Allergy status to other drugs, medicaments and biological substances
CPT/HCPCS: 96413; 96415; J1745

== ENCOUNTER → 2023-02-03 | Outpatient (CLI) | payer MEDICARE, MEDICAID ==
[~2023-02-03] MED LIST changes: -ACETAMINOPHEN 650MG PO PRIOR TO INFUSION PO ONE; -NS 1,000 ML IV SCH; -diphenhydrAMINE 25MG PO PRIOR TO INFUSION PO ONE; -inFLIXimab INJECTION 400 MG in NS 210 ML IV ONE
== END ==
LOC: M EKG 07:15
PROVIDERS: ATTEND Surgery
DX: Z01.818 Encounter for other preprocedural examination (principal)

== ENCOUNTER → 2023-03-15 | Outpatient (CLI) | payer MEDICARE, OTHER ==
[~2023-03-15] VITALS: Ht 154.9 cm; Wt 66.0 kg
[~2023-03-15] MED LIST changes: +ACETAMINOPHEN 650MG PO PRIOR TO INFUSION PO ONE; +NS 1,000 ML IV SCH; +diphenhydrAMINE 25MG PO PRIOR TO INFUSION PO ONE; +inFLIXimab INJECTION 400 MG in NS 210 ML IV ONE
[2023-03-15 09:30] VITALS: BP 165/85; O2SAT 99
[2023-03-15 10:35] VITALS: BP 140/68; O2SAT 100
[2023-03-15 11:05] VITALS: BP 133/65; O2SAT 97
[2023-03-15 11:20] VITALS: BP 137/74; O2SAT 98
[2023-03-15 11:50] VITALS: BP 118/69; O2SAT 100
[2023-03-15 12:15] VITALS: BP 140/88; O2SAT 98
== END ==
LOC: M INFU 09:14
PROVIDERS: ATTEND Internal Medicine Gastroenterology
DX: K50.90 Crohn's disease, unspecified, without complications (principal); Z88.8 Allergy status to other drugs, medicaments and biological substances
CPT/HCPCS: 96413; 96415; J1745

== ENCOUNTER 2023-04-08 10:21 | Day surgery (SDC) | payer MEDICARE ==
[~2023-04-08] VITALS: Ht 154.9 cm; Wt 63.1 kg
[~2023-04-08 10:21] MED LIST changes: -ACETAMINOPHEN 650MG PO PRIOR TO INFUSION PO ONE; -NS 1,000 ML IV SCH; +ceFAZolin SOD 2 GM in IV 1 EA IV ONE; -diphenhydrAMINE 25MG PO PRIOR TO INFUSION PO ONE; -inFLIXimab INJECTION 400 MG in NS 210 ML IV ONE
[2023-04-08] MEDS ORDERED: LR 1,000 ML IV SCH (10:30)
[2023-04-08] MEDS ORDERED: LIDOCAINE 1% SDV 30ML VIAL As Ordered ONE (12:33)
[2023-04-08] MEDS ORDERED: HEPARIN SOD (PORCINE) 5000UNITS/ML 1ML VIAL/SYRINGE As Ordered ONE (12:33)
[2023-04-08] MEDS ORDERED: ONDANSETRON 4MG 2ML VIAL As Ordered ONE (12:35)
[2023-04-08] MEDS ORDERED: LIDOCAINE 2% 100MG/5ML SDV (FOR ANES.) As Ordered ONE (12:36)
[2023-04-08] MEDS ORDERED: propofoL 200 MG/20 ML VIAL As Ordered ONE (12:36)
[2023-04-08] MEDS ORDERED: fentaNYL 100 MCG/2 ML INJECTION As Ordered ONE (12:40)
[2023-04-08] MEDS ORDERED: MIDAZOLAM INJ 2MG/2ML VIAL As Ordered ONE (12:40)
[2023-04-08] MEDS ORDERED: ACETAMINOPHEN 1000MG 100ML IV BAG As Ordered ONE (13:06)
[2023-04-08 14:55] VITALS: BP 164/81; TEMP 97.3; O2SAT 95
[2023-05-11] MEDS ORDERED: ELIQ5TAB PO (11:48)
[2023-05-11] MEDS ORDERED: VITA200020 PO (11:52)
[2023-05-11] MEDS ORDERED: CVS-161 PO (11:52)
== END 2023-04-08 15:00 | disposition home or self-care (01) ==
LOC: M OPP 10:21
PROVIDERS: ATTEND Surgery
DX: Z45.2 Encounter for adjustment and management of vascular access device (principal); R91.8 Other nonspecific abnormal finding of lung field; K50.90 Crohn's disease, unspecified, without complications; A15.0 Tuberculosis of lung; I10 Essential (primary) hypertension; K21.9 Gastro-esophageal reflux disease without esophagitis; R09.89 Other specified symptoms and signs involving the circulatory and respiratory systems; Z79.899 Other long term (current) drug therapy; Z91.041 Radiographic dye allergy status; Z91.040 Latex allergy status; Z88.8 Allergy status to other drugs, medicaments and biological substances
CPT/HCPCS: 36561; 71045; 76000; C1788; J0131; J0665; J0690; J1100; J2250; J2405; J3010

== ENCOUNTER → 2023-04-18 | Outpatient (CLI) | payer MEDICARE ==
[~2023-04-18] MED LIST changes: -ceFAZolin SOD 2 GM in IV 1 EA IV ONE
== END ==
LOC: M RAD 11:10
PROVIDERS: ATTEND Surgery Vascular Surgery
DX: R22.32 Localized swelling, mass and lump, left upper limb (principal); M79.622 Pain in left upper arm

== ENCOUNTER 2023-05-10 10:25 | Outpatient (CLI) | payer MEDICARE, OTHER ==
[2023-05-10] MEDS ORDERED: ACETAMINOPHEN 650MG PO PRIOR TO INFUSION PO ONE (11:00)
[2023-05-10] MEDS ORDERED: inFLIXimab INJECTION 400 MG in NS 210 ML IV ONE (11:00)
[2023-05-10] MEDS ORDERED: NS 1,000 ML IV SCH (11:00)
[2023-05-10] MEDS ORDERED: diphenhydrAMINE 25MG PO PRIOR TO INFUSION PO ONE (11:00)
[2023-05-10 11:15] VITALS: BP 162/87; TEMP 97.2; O2SAT 99
[2023-05-10 13:30] VITALS: BP 150/72; TEMP 98; O2SAT 98
[2023-05-11] MEDS ORDERED: ELIQ5TAB PO (11:48)
[2023-05-11] MEDS ORDERED: VITA200020 PO (11:52)
[2023-05-11] MEDS ORDERED: CVS-161 PO (11:52)
== END 2023-05-10 13:40 | disposition home or self-care (01) ==
LOC: M INFU 10:25
PROVIDERS: ATTEND Internal Medicine Gastroenterology
DX: K50.90 Crohn's disease, unspecified, without complications (principal); Z88.8 Allergy status to other drugs, medicaments and biological substances
CPT/HCPCS: 96413; 96415; J1745

== ENCOUNTER → 2023-05-30 | Outpatient (CLI) | payer MEDICARE, OTHER ==
[~2023-05-30] MED LIST changes: +CVS-161 PO; +ELIQ5TAB PO; +VITA200020 PO
[2023-05-30 16:34] LABS: HEMOGLOBIN 13.5 g/dl (12.0-15.5); MEAN CORPUSCULAR HEMOGLOBIN 26.5 pg (27.0-33.0); MEAN CORPUSCULAR HGB CONC 31.4 g/dl (32.0-36.5); MEAN CORPUSCULAR VOLUME 84.3 fl (80.0-96.0); PLATELET COUNT, AUTOMATED 264 10^3/uL (150-450); WHITE BLOOD COUNT 8.9 10^3/uL (4.0-10.0)
[2023-05-30 16:59] LABS: ALBUMIN 3.9 G/DL (3.2-5.2); ALKALINE PHOSPHATASE 80 U/L (46-116); ALT/SGPT 12 U/L (7.0-40); AST/SGOT 16 U/L (<34); BILIRUBIN,TOTAL 1.3 MG/DL (0.3-1.2); BLOOD UREA NITROGEN 24 MG/DL (9-23); CALCIUM LEVEL 9.3 MG/DL (8.3-10.6); CARBON DIOXIDE LEVEL 25 MMOL/L (20-31); CHLORIDE LEVEL 106 MMOL/L (98-107); GLOMERULAR FILTRATION RATE > 60.0 (>45); GLUCOSE, FASTING 93 MG/DL (74-106); POTASSIUM SERUM 3.6 MMOL/L (3.5-5.1); SODIUM LEVEL 140 MMOL/L (136-145); TOTAL PROTEIN 7.3 G/DL (5.7-8.2)
== END ==
LOC: M LAB 15:47
PROVIDERS: ATTEND Internal Medicine
DX: K50.90 Crohn's disease, unspecified, without complications (principal)

== ENCOUNTER 2023-07-05 08:35 | Outpatient (CLI) | payer MEDICARE, MEDICAID ==
[~2023-07-05] VITALS: Ht 154.9 cm; Wt 65.6 kg
[2023-07-05 08:51] VITALS: BP 163/93; TEMP 97.8; O2SAT 97
[2023-07-05] MEDS ORDERED: diphenhydrAMINE 25MG PO PRIOR TO INFUSION PO ONE (09:00)
[2023-07-05] MEDS ORDERED: ACETAMINOPHEN 650MG PO PRIOR TO INFUSION PO ONE (09:00)
[2023-07-05] MEDS ORDERED: inFLIXimab INJECTION 400 MG in NS 210 ML IV ONE (09:00)
[2023-07-05] MEDS ORDERED: NS 1,000 ML IV SCH (09:00)
[2023-07-05] MEDS ORDERED: SODIUM CHLORIDE 0.9% INJ 10 ML SYR IV PRN (09:00)
[2023-07-05] MEDS ORDERED: SODIUM CHLORIDE 0.9% INJ 10 ML SYR IV SCH (09:00)
[2023-07-05 10:30] VITALS: BP 143/81; TEMP 97.8; O2SAT 97
[2023-07-05 11:00] VITALS: BP 153/83; TEMP 97.5; O2SAT 97
[2023-07-05 11:30] VITALS: BP 136/85; TEMP 97.1; O2SAT 96
[2023-07-05 12:13] VITALS: BP 143/83; TEMP 97.4; O2SAT 98
== END 2023-07-05 12:13 | disposition home or self-care (01) ==
LOC: M INFU 08:35
PROVIDERS: ATTEND Internal Medicine Gastroenterology
DX: K50.90 Crohn's disease, unspecified, without complications (principal); Z88.8 Allergy status to other drugs, medicaments and biological substances
CPT/HCPCS: 96413; 96415; J1745

== ENCOUNTER 2023-08-30 08:50 | Outpatient (CLI) | payer MEDICAID, MEDICARE, OTHER ==
[2023-08-30] MEDS ORDERED: SODIUM CHLORIDE 0.9% INJ 10 ML SYR IV SCH (09:00)
[2023-08-30] MEDS ORDERED: inFLIXimab INJECTION 400 MG in NS 210 ML IV ONE (09:00)
[2023-08-30] MEDS ORDERED: ACETAMINOPHEN 650MG PO PRIOR TO INFUSION PO ONE (09:00)
[2023-08-30] MEDS ORDERED: NS 1,000 ML IV SCH (09:00)
[2023-08-30] MEDS ORDERED: SODIUM CHLORIDE 0.9% INJ 10 ML SYR IV PRN (09:00)
[2023-08-30] MEDS ORDERED: diphenhydrAMINE 25MG PO PRIOR TO INFUSION PO ONE (09:00)
[2023-08-30 09:16] VITALS: BP 177/106; TEMP 97.4; O2SAT 96
[2023-08-30 10:00] VITALS: BP 161/91; TEMP 97.8; O2SAT 98
[2023-08-30 10:30] VITALS: BP 141/77; TEMP 97.8; O2SAT 97
[2023-08-30 11:00] VITALS: BP 133/78; O2SAT 99
[2023-08-30 11:45] VITALS: BP 165/94; TEMP 97.6; O2SAT 98
== END 2023-08-30 11:46 ==
LOC: M INFU 08:50
PROVIDERS: ATTEND Internal Medicine Gastroenterology
DX: K50.90 Crohn's disease, unspecified, without complications (principal); Z88.8 Allergy status to other drugs, medicaments and biological substances
CPT/HCPCS: 96413; 96415; J1745

== ENCOUNTER → 2023-10-06 | Outpatient (CLI) | payer MEDICARE, OTHER ==
[~2023-10-06] MED LIST changes: +OMEGA-3 1000MG CAPSULE ONE
== END ==
LOC: M PLAIMG 09:16
PROVIDERS: ATTEND Physician Assistant
DX: R22.42 Localized swelling, mass and lump, left lower limb (principal)

== ENCOUNTER 2023-10-25 08:33 | Outpatient (CLI) | payer MEDICARE, OTHER ==
[~2023-10-25] VITALS: Ht 154.9 cm; Wt 65.0 kg
[~2023-10-25 08:33] MED LIST changes: -OMEGA-3 1000MG CAPSULE ONE
[2023-10-25 09:00] VITALS: BP 188/97; O2SAT 98
[2023-10-25] MEDS ORDERED: inFLIXimab INJECTION 400 MG in NS 210 ML IV ONE (09:20)
[2023-10-25] MEDS ORDERED: ACETAMINOPHEN 650MG PO PRIOR TO INFUSION PO ONE (09:20)
[2023-10-25] MEDS ORDERED: NS 1,000 ML IV SCH (09:20)
[2023-10-25] MEDS ORDERED: diphenhydrAMINE 25MG PO PRIOR TO INFUSION PO ONE (09:20)
[2023-10-25] MEDS ORDERED: SODIUM CHLORIDE 0.9% INJ 10 ML SYR IV PRN (09:30)
[2023-10-25 10:10] VITALS: BP 144/78; O2SAT 97
[2023-10-25 11:15] VITALS: BP 146/87; O2SAT 97
[2023-10-25 11:59] VITALS: BP 154/90; O2SAT 97
== END 2023-10-25 12:00 | disposition home or self-care (01) ==
LOC: M INFU 08:33
PROVIDERS: ATTEND Internal Medicine Gastroenterology
DX: K50.90 Crohn's disease, unspecified, without complications (principal); Z88.6 Allergy status to analgesic agent; Z88.8 Allergy status to other drugs, medicaments and biological substances; Z91.040 Latex allergy status; Z91.041 Radiographic dye allergy status
CPT/HCPCS: 96413; 96415; J1745

== ENCOUNTER → 2023-11-07 | Outpatient (CLI) | payer MEDICARE, OTHER | LOC: M RAD 10:52 | PROVIDERS: ATTEND Physician Assistant | DX: R22.42 Localized swelling, mass and lump, left lower limb (principal) ==

== ENCOUNTER 2023-12-20 09:30 | Outpatient (CLI) | payer MEDICARE ==
[~2023-12-20] VITALS: Ht 154.9 cm; Wt 66.4 kg
[2023-12-20 09:30] VITALS: BP 157/90; TEMP 97.9; O2SAT 98
[~2023-12-20 09:30] MED LIST changes: +NS 1,000 ML IV SCH; +SODIUM CHLORIDE 0.9% INJ 10 ML SYR IV PRN
[2023-12-20] MEDS: diphenhydrAMINE 25MG PO PRIOR TO INFUSION PO ONE (09:55)
[2023-12-20] MEDS: ACETAMINOPHEN 650MG PO PRIOR TO INFUSION PO ONE (09:55)
[2023-12-20] MEDS: inFLIXimab INJECTION 400 MG in NS 210 ML IV ONE (10:20)
[2023-12-20 10:50] VITALS: BP 131/75; TEMP 97.2; O2SAT 97
[2023-12-20 11:20] VITALS: BP 131/67; TEMP 97.5; O2SAT 96
[2023-12-20 12:15] VITALS: BP 136/78; TEMP 97.3; O2SAT 97
[2023-12-20] MEDS: SODIUM CHLORIDE 0.9% INJ 10 ML SYR IV SCH (12:16)
== END 2023-12-20 22:12 | disposition home or self-care (01) ==
LOC: M INFU 09:30
PROVIDERS: ATTEND Internal Medicine Gastroenterology
DX: K50.90 Crohn's disease, unspecified, without complications (principal); Z88.6 Allergy status to analgesic agent; Z88.8 Allergy status to other drugs, medicaments and biological substances; Z91.040 Latex allergy status; Z91.041 Radiographic dye allergy status
CPT/HCPCS: 96413; 96415; J1745

== ENCOUNTER 2024-02-14 08:34 | Outpatient (CLI) | payer MEDICARE, OTHER ==
[~2024-02-14 08:34] MED LIST changes: -NS 1,000 ML IV SCH; -SODIUM CHLORIDE 0.9% INJ 10 ML SYR IV PRN
[2024-02-14 08:50] VITALS: BP 156/94; O2SAT 97
[2024-02-14] MEDS ORDERED: NS 1,000 ML IV SCH (09:00)
[2024-02-14] MEDS ORDERED: SODIUM CHLORIDE 0.9% INJ 10 ML SYR IV PRN (09:00)
[2024-02-14] MEDS: SODIUM CHLORIDE 0.9% INJ 10 ML SYR IV SCH (09:11)
[2024-02-14] MEDS: diphenhydrAMINE 25MG PO PRIOR TO INFUSION PO ONE (09:11)
[2024-02-14] MEDS: ACETAMINOPHEN 650MG PO PRIOR TO INFUSION PO ONE (09:11)
[2024-02-14] MEDS: inFLIXimab INJECTION 400 MG in NS 210 ML IV ONE (09:24)
[2024-02-14 10:00] VITALS: BP 134/78; O2SAT 96
[2024-02-14 10:30] VITALS: BP 137/80; O2SAT 97
[2024-02-14 11:00] VITALS: BP 136/76; O2SAT 97
== END 2024-02-14 11:50 | disposition home or self-care (01) ==
LOC: M INFU 08:34
PROVIDERS: ATTEND Internal Medicine Gastroenterology
DX: K50.90 Crohn's disease, unspecified, without complications (principal); Z91.041 Radiographic dye allergy status; Z91.040 Latex allergy status; Z88.6 Allergy status to analgesic agent; Z88.8 Allergy status to other drugs, medicaments and biological substances
CPT/HCPCS: 96413; 96415; J1745

== ENCOUNTER 2024-04-10 08:33 | Outpatient (CLI) | payer MEDICARE ==
[~2024-04-10] VITALS: Ht 154.9 cm; Wt 65.9 kg
[2024-04-10] MEDS ORDERED: NS 1,000 ML IV SCH (09:00)
[2024-04-10 09:05] VITALS: BP 154/94; O2SAT 100
[2024-04-10] MEDS: diphenhydrAMINE 25MG PO PRIOR TO INFUSION PO ONE (09:33)
[2024-04-10] MEDS: ACETAMINOPHEN 650MG PO PRIOR TO INFUSION PO ONE (09:33)
[2024-04-10] MEDS: inFLIXimab INJECTION 400 MG in NS 210 ML IV ONE (10:09)
[2024-04-10 11:00] VITALS: BP 134/79; O2SAT 99
[2024-04-10 12:20] VITALS: BP 159/81; O2SAT 96
[2024-04-10] MEDS: SODIUM CHLORIDE 0.9% INJ 10 ML SYR IV PRN (12:30)
== END 2024-04-10 12:34 ==
LOC: M INFU 08:33
PROVIDERS: ATTEND Internal Medicine Gastroenterology
DX: K50.90 Crohn's disease, unspecified, without complications (principal)
CPT/HCPCS: 96413; 96415; J1745

== ENCOUNTER 2024-06-05 08:45 | Outpatient (CLI) | payer MEDICARE, OTHER ==
[~2024-06-05] VITALS: Ht 154.9 cm; Wt 66.6 kg
[2024-06-05] MEDS ORDERED: NS 1,000 ML IV SCH (09:00)
[2024-06-05 09:10] VITALS: BP 160/84; O2SAT 98
[2024-06-05] MEDS: ACETAMINOPHEN 650MG PO PRIOR TO INFUSION PO ONE (09:26)
[2024-06-05] MEDS: diphenhydrAMINE 25MG PO PRIOR TO INFUSION PO ONE (09:26)
[2024-06-05] MEDS: inFLIXimab INJECTION 400 MG in NS 210 ML IV ONE (10:13)
[2024-06-05 10:30] VITALS: BP 135/81; O2SAT 97
[2024-06-05] MEDS: SODIUM CHLORIDE 0.9% INJ 10 ML SYR IV SCH (11:13)
[2024-06-05 11:15] VITALS: BP 146/77; O2SAT 98
== END 2024-06-05 11:20 ==
LOC: M INFU 08:45
PROVIDERS: ATTEND Internal Medicine Gastroenterology
DX: K50.90 Crohn's disease, unspecified, without complications (principal); Z91.041 Radiographic dye allergy status; Z91.040 Latex allergy status; Z88.8 Allergy status to other drugs, medicaments and biological substances
CPT/HCPCS: 96413; J1642; J1745

== ENCOUNTER 2024-06-25 11:03 | Day surgery (SDC) | payer MEDICARE, OTHER ==
[~2024-06-25] VITALS: Ht 154.9 cm; Wt 65.4 kg
[~2024-06-25 11:03] MED LIST changes: +LR 1,000 ML IV SCH; +UNRESOLVED CLARIFICATION ENTRY XX ONE
[2024-06-25] MEDS ORDERED: fentaNYL 100 MCG/2 ML INJECTION As Ordered ONE (11:30)
[2024-06-25] MEDS ORDERED: MIDAZOLAM INJ 2MG/2ML VIAL As Ordered ONE (11:30)
[2024-06-25] MEDS: FLURBIPROFEN 0.03% OPHTH SOLN 2.5 ML OD SCH (11:34)
[2024-06-25] MEDS: ATROPINE SULFATE 1% OPHTH SOLN 2ML BTL OD SCH (11:34)
[2024-06-25] MEDS: PHENYLEPHRINE 2.5% OPHTH SOL 2ML OD SCH (11:34)
[2024-06-25] MEDS: TETRACAINE 0.5% OPHTH SOLN 4ML OD SCH (11:35)
[2024-06-25] MEDS: LIDOCAINE 1% SDV 5ML VIAL As Ordered ONE (12:56)
[2024-06-25] MEDS: CEFUROXIME 1MG/0.1ML INTRACAMERAL INJ As Ordered ONE (12:56)
[2024-06-25 13:22] VITALS: BP 132/76; TEMP 97.6; O2SAT 98
== END 2024-06-25 13:39 | disposition home or self-care (01) ==
LOC: M SDC 11:03
PROVIDERS: ATTEND Ophthalmology
DX: H25.11 Age-related nuclear cataract, right eye (principal); I10 Essential (primary) hypertension; E78.5 Hyperlipidemia, unspecified; K21.9 Gastro-esophageal reflux disease without esophagitis; Z88.8 Allergy status to other drugs, medicaments and biological substances; Z79.01 Long term (current) use of anticoagulants; I73.9 Peripheral vascular disease, unspecified; Z91.041 Radiographic dye allergy status; Z91.040 Latex allergy status
CPT/HCPCS: 66984; J0697; J2250; J3010; V2788

== ENCOUNTER → 2024-07-24 | Outpatient (CLI) | payer MEDICARE ==
[~2024-07-24] MED LIST changes: -LR 1,000 ML IV SCH; -UNRESOLVED CLARIFICATION ENTRY XX ONE
[2024-07-24 11:35] LABS: THYROID STIMULATING HORMONE 1.824 uIU/ML (0.55-4.78); THYROXINE (T4) 11.6 UG/DL (4.5-10.9)
[2024-07-24 11:36] LABS: FREE THYROXINE INDEX 3.8 % (1.3-4.8)
== END ==
LOC: M LAB 10:03
PROVIDERS: ATTEND Internal Medicine Gastroenterology
DX: K50.00 Crohn's disease of small intestine without complications (principal); Z79.899 Other long term (current) drug therapy

== ENCOUNTER 2024-07-31 09:00 | Outpatient (CLI) | payer MEDICARE ==
[~2024-07-31] VITALS: Ht 154.9 cm; Wt 66.0 kg
[~2024-07-31 09:00] MED LIST changes: +NS 1,000 ML IV SCH
[2024-07-31 09:08] VITALS: BP 143/85; O2SAT 98
[2024-07-31] MEDS: ACETAMINOPHEN 650MG PO PRIOR TO INFUSION PO ONE (09:13)
[2024-07-31] MEDS: diphenhydrAMINE 25MG PO PRIOR TO INFUSION PO ONE (09:13)
[2024-07-31] MEDS: inFLIXimab INJECTION 400 MG in NS 210 ML IV ONE (09:56)
[2024-07-31 11:10] VITALS: BP 154/85; O2SAT 97
[2024-07-31] MEDS: SODIUM CHLORIDE 0.9% INJ 10 ML SYR IV PRN (11:10)
== END 2024-07-31 11:15 | disposition home or self-care (01) ==
LOC: M INFU 09:00
PROVIDERS: ATTEND Internal Medicine Gastroenterology
DX: K50.90 Crohn's disease, unspecified, without complications (principal); Z88.5 Allergy status to narcotic agent; Z88.6 Allergy status to analgesic agent; Z91.040 Latex allergy status; Z91.041 Radiographic dye allergy status
CPT/HCPCS: 96367; 96413; J1642; J1745

== ENCOUNTER → 2024-08-22 | Outpatient (CLI) | payer MEDICARE, OTHER ==
[~2024-08-22] MED LIST changes: -NS 1,000 ML IV SCH
== END ==
LOC: M RAD 08:32
PROVIDERS: ATTEND Internal Medicine Gastroenterology
DX: R10.13 Epigastric pain (principal); K76.0 Fatty (change of) liver, not elsewhere classified; K80.20 Calculus of gallbladder without cholecystitis without obstruction; N28.1 Cyst of kidney, acquired; R14.0 Abdominal distension (gaseous)

== ENCOUNTER 2024-09-25 08:47 | Outpatient (CLI) | payer MEDICARE ==
[~2024-09-25] VITALS: Ht 154.9 cm; Wt 66.4 kg
[2024-09-25 08:55] VITALS: BP 150/88; TEMP 97.6; O2SAT 98
[2024-09-25] MEDS ORDERED: NS (Normal Saline) 0.9% 1,000 ML IV SCH (09:00)
[2024-09-25] MEDS: diphenhydrAMINE 25MG PO PRIOR TO INFUSION PO ONE (09:01)
[2024-09-25] MEDS: ACETAMINOPHEN 650MG PO PRIOR TO INFUSION PO ONE (09:01)
[2024-09-25] MEDS: inFLIXimab INJECTION 400 MG in NS 210 ML IV ONE (09:29)
[2024-09-25] MEDS ORDERED: PROT1TAB2 PO (09:38)
[2024-09-25 09:45] VITALS: BP 164/88; O2SAT 96
[2024-09-25 10:55] VITALS: BP 139/93; O2SAT 98
[2024-09-25] MEDS: SODIUM CHLORIDE 0.9% INJ 10 ML SYR IV PRN (11:53)
== END 2024-09-25 10:55 | disposition home or self-care (01) ==
LOC: M INFU 08:47
PROVIDERS: ATTEND Internal Medicine Gastroenterology
DX: K50.90 Crohn's disease, unspecified, without complications (principal); Z88.8 Allergy status to other drugs, medicaments and biological substances; Z91.041 Radiographic dye allergy status; Z91.040 Latex allergy status
CPT/HCPCS: 96413; J1642; J1745

== ENCOUNTER 2024-10-08 17:16 | Emergency (ER) | payer MEDICARE ==
[~2024-10-08] VITALS: Ht 154.9 cm; Wt 67.3 kg
[~2024-10-08 17:16] MED LIST changes: +PROT1TAB2 PO
[2024-10-08 18:24] LABS: BASO # 0.1 10^3/uL (0.0-0.2); BASO % 0.4 % (0.0-1.0); EOS % 0.3 % (0.0-3.0); HEMATOCRIT 44.5 % (36.0-47.0); HEMOGLOBIN 14.4 g/dl (12.0-15.5); LYMPH # 2.1 10^3/uL (1.5-5.0); LYMPH % 15.1 % (24.0-44.0); MEAN CORPUSCULAR HEMOGLOBIN 26.4 pg (27.0-33.0); MEAN CORPUSCULAR HGB CONC 32.4 g/dl (32.0-36.5); MEAN CORPUSCULAR VOLUME 81.5 fl (80.0-96.0); MONO # 0.6 10^3/uL (0.0-0.8); MONO % 4.6 % (2.0-8.0); NEUTROPHILS # 10.8 10^3/uL (1.5-8.5); NEUTROPHILS % 79.2 % (36.0-66.0); PLATELET COUNT, AUTOMATED 297 10^3/uL (150-450); RED BLOOD COUNT 5.46 10^6/uL (4.00-5.40); WHITE BLOOD COUNT 13.7 10^3/uL (4.0-10.0)
[2024-10-08 18:36] LABS: INR 1.06; PARTIAL THROMBOPLASTIN TIME 26.2 SECONDS (24.8-34.2); PROTHROMBIN TIME 14.1 SECONDS (12.5-14.5)
[2024-10-08 18:52] LABS: KETONE, URINE AUTO RFX TRACE mg/dL (NEGATIVE); MUCUS, URINE RFX SMALL (NEGATIVE); NITRITE, URINE AUTO RFX NEGATIVE (NEGATIVE); RBC, URINE AUTO RFX 1 /HPF (0-3); SQUAM EPITHELIAL CELL UR AURFX 1 /HPF (0-6); WBC, URINE AUTO RFX 8 /HPF (0-3)
[2024-10-08 18:55] LABS: CK-MB VALUE MASS 4.4 NG/ML (<3.6)
[2024-10-08 18:56] LABS: LIPASE 31 U/L (12-53)
[2024-10-08 18:58] LABS: ALBUMIN 4.1 G/DL (3.2-5.2); ALKALINE PHOSPHATASE 86 U/L (35-104); ALT/SGPT 17 U/L (7.0-40); AST/SGOT 23 U/L (<34); BILIRUBIN,DIRECT 0.4 MG/DL (<0.4); BILIRUBIN,TOTAL 1.5 MG/DL (0.3-1.2); BLOOD UREA NITROGEN 20 MG/DL (9-23); CALCIUM LEVEL 10.8 MG/DL (8.3-10.6); CARBON DIOXIDE LEVEL 28 MMOL/L (20-31); CHLORIDE LEVEL 105 MMOL/L (98-107); CPK CREATINE PHOSPHOKINASE 143 U/L (34-145); CREATININE FOR GFR 0.57 MG/DL (0.55-1.30); GLOMERULAR FILTRATION RATE > 60.0 (>45); GLUCOSE, FASTING 114 MG/DL (74-106); MB/CK RELATIVE INDEX 3.07 (< OR =4); SODIUM LEVEL 142 MMOL/L (136-145); TOTAL PROTEIN 7.6 G/DL (5.7-8.2)
[2024-10-08 18:59] LABS: LEUKOCYTE ESTERASE UR AUTO RFX 1+ (NEGATIVE)
[2024-10-08] MEDS: MORPHINE 2 MG/ML 1ML VIAL IV ONE (19:30)
[2024-10-08 21:43] VITALS: BP 167/81; TEMP 99; O2SAT 96
[2024-10-08] MEDS: SUCRALFATE 1 GM TAB PO ONE (22:25)
[2024-10-08] MEDS: CIPROFLOXACIN 500MG TABLET PO ONE (22:37)
[2024-10-08] MEDS: PANTOPRAZOLE 40MG VIAL IV ONE (22:37)
[2024-10-08] MEDS ORDERED: CIPR-249 PO (22:56)
[2024-10-08] MEDS ORDERED: CARA1TAB6 PO (22:56)
[2024-10-08] MEDS ORDERED: ONDA-282 PO (22:56)
[2024-10-08] MEDS ORDERED: OMEP40CA4 PO (22:56)
[2024-10-08] MEDS: DICYCLOMINE 10 MG CAP PO ONE (23:10)
[2024-10-08] MEDS: NORCO 5/325MG TABLET (HOME DOSE PACK) PO ONE (23:23)
== END 2024-10-08 23:40 | disposition home or self-care (01) ==
LOC: M ED 17:16
DX: K50.90 Crohn's disease, unspecified, without complications (principal); R91.8 Other nonspecific abnormal finding of lung field; N13.30 Unspecified hydronephrosis; I25.10 Atherosclerotic heart disease of native coronary artery without angina pectoris; I10 Essential (primary) hypertension; K80.20 Calculus of gallbladder without cholecystitis without obstruction; Z79.01 Long term (current) use of anticoagulants; Z79.899 Other long term (current) drug therapy; Z88.8 Allergy status to other drugs, medicaments and biological substances; Z91.041 Radiographic dye allergy status; Z91.040 Latex allergy status
CPT/HCPCS: 74021; 74176; 76705; 80048; 80076; 81001; 82550; 82553; 83605; 83690; 84484; 85025; 85610; 85730; 87040; 87086; 93005; 96374; 96375; 99284; J2470

== ENCOUNTER → 2024-10-29 | Outpatient (CLI) | payer MEDICARE ==
[~2024-10-29] MED LIST changes: +CARA1TAB6 PO; +OMEP40CA4 PO; +ONDA-282 PO
== END ==
LOC: M PLAIMG 08:53
PROVIDERS: ATTEND Internal Medicine
DX: C34.31 Malignant neoplasm of lower lobe, right bronchus or lung (principal); Z95.828 Presence of other vascular implants and grafts; I70.0 Atherosclerosis of aorta; K44.9 Diaphragmatic hernia without obstruction or gangrene

== ENCOUNTER 2024-11-20 08:42 | Outpatient (CLI) | payer MEDICARE, OTHER ==
[~2024-11-20] VITALS: Ht 154.9 cm; Wt 67.0 kg
[2024-11-20 09:00] VITALS: BP 157/96; O2SAT 100
[2024-11-20] MEDS: diphenhydrAMINE 25MG PO PRIOR TO INFUSION PO ONE (09:26)
[2024-11-20] MEDS: ACETAMINOPHEN 650MG PO PRIOR TO INFUSION PO ONE (09:27)
[2024-11-20] MEDS: inFLIXimab INJECTION 400 MG in NS 210 ML IV ONE (09:58)
[2024-11-20] MEDS: SODIUM CHLORIDE 0.9% INJ 10 ML SYR IV SCH (09:58)
[2024-11-20 10:30] VITALS: BP 165/78; O2SAT 98
[2024-11-20 11:05] VITALS: BP 157/82; O2SAT 99
[2024-11-21] MEDS ORDERED: NS (Normal Saline) 0.9% 1,000 ML IV SCH (09:00)
[2024-11-21] MEDS ORDERED: diphenhydrAMINE 25MG PO PRIOR TO INFUSION PO ONE (09:00)
[2024-11-21] MEDS ORDERED: ACETAMINOPHEN 650MG PO PRIOR TO INFUSION PO ONE (09:00)
== END 2024-11-20 11:10 ==
LOC: M INFU 08:42
PROVIDERS: ATTEND Internal Medicine Gastroenterology
DX: K50.919 Crohn's disease, unspecified, with unspecified complications (principal); Z88.8 Allergy status to other drugs, medicaments and biological substances; Z91.040 Latex allergy status; Z91.041 Radiographic dye allergy status
CPT/HCPCS: 96413; J1642; J1745

== ENCOUNTER 2024-12-26 11:03 | Day surgery (SDC) | payer MEDICARE, OTHER ==
[~2024-12-26] VITALS: Ht 154.9 cm; Wt 65.1 kg
[2024-12-26] MEDS ORDERED: LIDOCAINE 2% 100MG/5ML SDV (FOR ANES.) As Ordered ONE (11:10)
[2024-12-26] MEDS ORDERED: ROCURONIUM BROMIDE 50MG/5ML VIAL As Ordered ONE (11:10)
[2024-12-26] MEDS ORDERED: propofoL 200 MG/20 ML VIAL As Ordered ONE (11:10)
[2024-12-26] MEDS ORDERED: MIDAZOLAM INJ 2MG/2ML VIAL As Ordered ONE (11:10)
[2024-12-26] MEDS ORDERED: ONDANSETRON 4MG 2ML VIAL As Ordered ONE (11:10)
[2024-12-26] MEDS ORDERED: fentaNYL 100 MCG/2 ML INJECTION As Ordered ONE (11:11)
[2024-12-26] MEDS: CelecoXIB 400 MG CAP PO ONE (11:54)
[2024-12-26] MEDS: LR 1,000 ML IV SCH (11:54)
[2024-12-26] MEDS: ceFAZolin SOD 2 GM IV ONCE IV ONE (12:18)
[2024-12-26] MEDS: INDOCYANINE GREEN 25MG VIAL (IC-GREEN) IV ONE (12:18)
[2024-12-26] MEDS ORDERED: ACETAMINOPHEN 1000MG/100ML IV BAG As Ordered ONE (12:40)
[2024-12-26] MEDS ORDERED: SUGAMMADEX SODIUM 500 MG/5 ML VIAL (BRIDION) As Ordered ONE (12:40)
[2024-12-26] MEDS ORDERED: PHENYLephrine 500MCG 5ML (100MCG/ML) SYRINGE As Ordered ONE (12:57)
[2024-12-26] MEDS ORDERED: KETOROLAC 30 MG/ML 1ML VIAL As Ordered ONE (13:31)
[2024-12-26] MEDS: LIDOCAINE 1% SDV 30ML VIAL As Ordered ONE (14:05)
[2024-12-26] MEDS: HYDROMORPHONE HCL 0.5 MG/ 0.5 ML SYRINGE IV PRN (14:39)
[2024-12-26] MEDS ORDERED: INDOCYANINE GREEN 25MG VIAL (IC-GREEN) As Ordered ONE (15:09)
[2024-12-26] MEDS ORDERED: dexmedeTOMIDine (4MCG/ML)200MCG/50ML BTL (PRECEDEX) As Ordered ONE (15:09)
[2024-12-26] MEDS: fentaNYL 100 MCG/2 ML INJECTION IV PRN (15:38)
[2024-12-26] MEDS: oxyCODONE 5MG TAB PO PRN (16:04)
[2024-12-26] MEDS: ONDANSETRON 4MG 2ML VIAL IV PRN (16:39)
[2024-12-26] MEDS: METOCLOPRAMIDE INJ 10MG/2ML VIAL IV STA (16:45)
[2024-12-26 17:41] VITALS: BP 139/67; TEMP 97.1; O2SAT 98
== END 2024-12-26 17:44 | disposition home or self-care (01) ==
LOC: M SDC 11:03
PROVIDERS: ATTEND Surgery
DX: K80.20 Calculus of gallbladder without cholecystitis without obstruction (principal); N73.6 Female pelvic peritoneal adhesions (postinfective); I10 Essential (primary) hypertension; I73.9 Peripheral vascular disease, unspecified; K21.9 Gastro-esophageal reflux disease without esophagitis; D64.9 Anemia, unspecified; Z86.718 Personal history of other venous thrombosis and embolism; Z79.01 Long term (current) use of anticoagulants; Z79.899 Other long term (current) drug therapy; Z91.040 Latex allergy status; Z91.041 Radiographic dye allergy status; Z88.8 Allergy status to other drugs, medicaments and biological substances
CPT/HCPCS: 47563; 64488; 88304; J0131; J0665; J0690; J1100; J1171; J2250; J2371; J2405; J2765; J3010; Q9968; S2900

== ENCOUNTER 2025-01-15 08:37 | Outpatient (CLI) | payer MEDICARE, OTHER ==
[~2025-01-15] VITALS: Ht 154.9 cm; Wt 63.1 kg
[2025-01-15] MEDS ORDERED: SODIUM CHLORIDE 0.9% INJ 10 ML SYR IV PRN (08:50)
[2025-01-15 08:55] VITALS: BP 149/83; O2SAT 98
[2025-01-15] MEDS ORDERED: NS (Normal Saline) 0.9% 1,000 ML IV SCH ×2 (09:10→18:00)
[2025-01-15] MEDS: diphenhydrAMINE 25MG PO PRIOR TO INFUSION PO ONE (09:13)
[2025-01-15] MEDS: ACETAMINOPHEN 650MG PO PRIOR TO INFUSION PO ONE (09:13)
[2025-01-15] MEDS: SODIUM CHLORIDE 0.9% INJ 10 ML SYR IV SCH (09:14)
[2025-01-15] MEDS: inFLIXimab INJECTION 400 MG in NS 210 ML IV ONE (09:39)
[2025-01-15 10:55] VITALS: BP 152/87; O2SAT 99
[2025-01-15] MEDS ORDERED: diphenhydrAMINE 25MG PO PRIOR TO INFUSION PO ONE (18:00)
[2025-01-15] MEDS ORDERED: ACETAMINOPHEN 650MG PO PRIOR TO INFUSION PO ONE (18:00)
== END 2025-01-15 10:50 | disposition home or self-care (01) ==
LOC: M INFU 08:37
PROVIDERS: ATTEND Internal Medicine Gastroenterology
DX: K50.919 Crohn's disease, unspecified, with unspecified complications (principal); Z88.8 Allergy status to other drugs, medicaments and biological substances; Z91.040 Latex allergy status; Z91.041 Radiographic dye allergy status
CPT/HCPCS: 96413; J1642; J1745

== ENCOUNTER 2025-05-16 07:11 | Outpatient (CLI) | payer MEDICARE, OTHER ==
[~2025-05-16] VITALS: Ht 154.9 cm; Wt 64.1 kg
[2025-05-16] MEDS ORDERED: NS (Normal Saline) 0.9% 1,000 ML IV SCH (07:30)
[2025-05-16 07:34] VITALS: BP 158/89; TEMP 97.2; O2SAT 98
[2025-05-16] MEDS: ACETAMINOPHEN 650MG PO PRIOR TO INFUSION PO ONE (07:35)
[2025-05-16] MEDS: inFLIXimab INJECTION 300 MG in NS 220 ML IV ONE (08:04)
[2025-05-16 09:00] VITALS: BP 128/71; O2SAT 98
[2025-05-16 09:30] VITALS: BP 132/79; O2SAT 96
[2025-05-16] MEDS: SODIUM CHLORIDE 0.9% INJ 10 ML SYR IV SCH (10:04)
[2025-05-16] MEDS: HEPARIN LOCK FLUSH 100 UNITS/ML 3 ML SYRINGE IV SCH (10:05)
[2025-05-16 10:10] VITALS: BP 139/73; O2SAT 97
== END 2025-05-16 10:10 | disposition home or self-care (01) ==
LOC: M INFU 07:11
PROVIDERS: ATTEND Internal Medicine Gastroenterology
DX: K50.00 Crohn's disease of small intestine without complications (principal); Z88.8 Allergy status to other drugs, medicaments and biological substances; Z91.040 Latex allergy status; Z91.041 Radiographic dye allergy status
CPT/HCPCS: 96413; 96415; J1642; J1745

== ENCOUNTER 2025-07-11 09:00 | Outpatient (CLI) | payer MEDICARE, OTHER ==
[~2025-07-11] VITALS: Ht 154.9 cm; Wt 63.1 kg
[2025-07-11] VITALS (7 sets, daily range): BP systolic 128–156; BP diastolic 66–89; TEMP 97.3–97.9; O2SAT 97–99
[~2025-07-11 09:00] MED LIST changes: +NS (Normal Saline) 0.9% 1,000 ML IV SCH; +inFLIXimab INJECTION 800 MG in NS 170 ML IV ONE
[2025-07-11] MEDS: diphenhydrAMINE 25MG PO PRIOR TO INFUSION PO ONE (09:05)
[2025-07-11] MEDS: ACETAMINOPHEN 650MG PO PRIOR TO INFUSION PO ONE (09:05)
[2025-07-11] MEDS: SODIUM CHLORIDE 0.9% INJ 10 ML SYR IV SCH (09:07)
[2025-07-11] MEDS: HEPARIN LOCK FLUSH 100 UNITS/ML 3 ML SYRINGE IV SCH (09:07)
[2025-07-11] MEDS: inFLIXimab INJECTION 300 MG in NS 220 ML IV ONE (10:17)
== END 2025-07-11 12:20 | disposition home or self-care (01) ==
LOC: M INFU 09:00
PROVIDERS: ATTEND Internal Medicine Gastroenterology
DX: K50.00 Crohn's disease of small intestine without complications (principal); Z88.8 Allergy status to other drugs, medicaments and biological substances; Z91.040 Latex allergy status; Z91.041 Radiographic dye allergy status
CPT/HCPCS: 96375; 96413; 96415; J1642; J1745

== ENCOUNTER 2025-09-05 09:06 | Outpatient (CLI) | payer MEDICARE, OTHER ==
[~2025-09-05] VITALS: Ht 154.9 cm; Wt 61.8 kg
[~2025-09-05 09:06] MED LIST changes: +ALBUTEROL SULFATE 2.5 MG/0.5 ML INH CONCENTRATE NEB SOLN INH PRN; +EPINEPHrine INJ 1 MG/ML 1ML AMP IM PRN; -FISH10005 PO; +FISH1CAP38 PO; +diphenhydrAMINE 50 MG/ML VIAL IV PRN; -inFLIXimab INJECTION 800 MG in NS 170 ML IV ONE
[2025-09-05 09:25] VITALS: BP 155/86; O2SAT 100
[2025-09-05] MEDS: diphenhydrAMINE 25MG PO PRIOR TO INFUSION PO ONE (09:51)
[2025-09-05] MEDS: ACETAMINOPHEN 650MG PO PRIOR TO INFUSION PO ONE (09:51)
[2025-09-05] MEDS: inFLIXimab INJECTION 300 MG in NS 220 ML IV ONE (10:15)
[2025-09-05 12:14] VITALS: BP 144/79; O2SAT 99
[2025-09-05] MEDS: SODIUM CHLORIDE 0.9% INJ 10 ML SYR IV SCH (12:24)
[2025-09-05] MEDS: HEPARIN LOCK FLUSH 100 UNITS/ML 3 ML SYRINGE IV ONE (12:24)
== END 2025-09-05 12:30 ==
LOC: M INFU 09:06
PROVIDERS: ATTEND Internal Medicine Gastroenterology
DX: K50.00 Crohn's disease of small intestine without complications (principal); Z91.041 Radiographic dye allergy status; Z91.040 Latex allergy status; Z88.8 Allergy status to other drugs, medicaments and biological substances
CPT/HCPCS: 96413; 96415; J1642; J1745